=== PATIENT | female | born 1950 | race African-American/Black ===

== ENCOUNTER 2019-12-30 05:00 | Inpatient (IN) | payer MEDICARE, MEDICAID ==
[~2019-12-30] VITALS: Ht 170.2 cm; Wt 93.0 kg
[2019-12-30 05:00] VITALS: BP 151/94
[2019-12-30 06:07] LABS: APPEARANCE,URINE CLEAR; BILIRUBIN, URINE NEGATIVE (NEGATIVE); GLUCOSE, URINE (UA) NEGATIVE (NEGATIVE); KETONES,URINE 1+ (NEGATIVE); LEUKOCYTE ESTERASE ,URINE 1+ (NEGATIVE); NITRITE,URINE NEGATIVE (NEGATIVE); PH,URINE 9 (4.5-8.0); PROTEIN,URINE 3+ (NEGATIVE); UROBILINOGEN,URINE 8 MG/DL (0.0-1.0)
[2019-12-30 06:16] LABS: ANION GAP 8 mmol/L (5-15); BASOPHILS % (AUTO) 0.3 % (0.0-2.0); BLOOD UREA NITROGEN 11 mg/dL (7-18); CALCIUM 9.2 MG/DL (8.5-10.1); CARBON DIOXIDE 31 MMOL/L (21-32); CHLORIDE 104 MMOL/L (98-107); CREATININE 0.6 MG/DL (0.55-1.30); HEMATOCRIT 50.9 % (37.0-47.0); HEMOGLOBIN 15.3 G/DL (12.0-16.0); LYMPHOCYTES % (AUTO) 9.2 % (20.0-45.0); MEAN CORPUSCULAR VOLUME 86 FL (80-99); MONOCYTES % (AUTO) 6.3 % (1.0-10.0); NEUTROPHILS % (AUTO) 84.2 % (45.0-75.0); PLATELET COUNT 158 K/UL (150-450); POTASSIUM 4.1 MMOL/L (3.5-5.1); SODIUM 143 MMOL/L (136-145)
[2019-12-30 06:18] LABS: COLOR,URINE YELLOW
--- NOTE | 2019-12-30 06:25 | Emergency Room Report ---
History of Present Illness General Chief Complaint: Dyspnea/Respdistress Source: Medical Record, EMS (Leif Morrison MD) Present Illness HPI 69-year-old female presents the ED for low O2 sats. Brought in by EMS from residential facility. O2 sat 80s on 2 L nasal cannula. Patient nonverbal at baseline. Patient has fever. Patient has tested positive for COVID room. Patient unable to provide any additional history at this time. No signs of distress. No other aggravating relieving factors. No other associated symptoms (Leif Morrison MD) Allergies: Coded Allergies: IODINE (Verified Allergy, Unknown, 12/30/19) MORPHINE (Verified Allergy, Unknown, 12/30/19) PENICILLINS (Verified Allergy, Unknown, 12/30/19) SHELLFISH DERIVED (Verified Allergy, Unknown, 12/30/19) COVID-19 Screening Contact w/high risk pt: Yes Recent Travel to affected area: No Experienced COVID-19 symptoms?: Yes COVID-19 symptoms experienced: Shortness of Breath COVID-19 Testing performed CAT DRIVER: Yes COVID-19 Screening: Positive COVID-19 COVID-19 Testing Source: @ FACILITY ON 12/14 (Leif Morrison MD) Patient History Past Medical History: unable to obtain Past Surgical History: none Pertinent Family History: none Social History: Denies: smoking, alcohol use, drug use Now: No Immunizations: UTD Reviewed Nursing Documentation: PMH: Agreed; PSxH: Agreed (Leif Morrison MD) Review of Systems All Other Systems: limited (Leif Morrison MD) Physical Exam Vital Signs Date Time Temp Pulse Resp B/P (MAP) Pulse Ox O2 Delivery O2 Flow Rate FiO2 12/30/19 05:00 100.4 100 20 134/86 (102) 96 Nasal Cannula 2.0 Sp02 EP Interpretation: reviewed, normal General Appearance: no apparent distress, GCS 15, non-toxic, lethargic Head: normocephalic, atraumatic Eyes: bilateral eye normal inspection, bilateral eye PERRL ENT: hearing grossly normal, normal pharynx, no angioedema, normal voice Neck: full range of motion, supple/symm/no masses Respiratory: chest non-tender, lungs clear, normal breath sounds, speaking full sentences Cardiovascular #1: regular rate, rhythm, no edema Cardiovascular #2: 2+ carotid (R), 2+ carotid (L), 2+ radial (R), 2+ radial (L) , 2+ dorsalis pedis (R), 2+ dorsalis pedis (L) Gastrointestinal: normal bowel sounds, non tender, soft, non-distended, no guarding, no rebound Rectal: deferred Genitourinary: normal inspection, no CVA tenderness Musculoskeletal: back normal, normal range of motion, gait/station normal, non- tender Neurologic: other - Nonverbal Psychiatric: other - Nonverbal Reflexes: 3+ bicep (R), 3+ bicep (L), 3+ tricep (R), 3+ tricep (L), 3+ knee (R) , 3+ knee (L) Skin: other - See nursing skin notes Lymphatic: no adenopathy (Leif Morrison MD) Medical Decision Making Diagnostic Impression: Primary Impression: Respiratory distress Additional Impression: Pneumonia due to COVID-19 virus ER Course Assumed care of this patient from previous provider pending labs, x-ray and admission. Briefly this is a 69-year-old female presenting from residential facility for evaluation of shortness of breath. Patient recently tested positive COVID-19. Chest x-ray concerning for bilateral infiltrates but she is improved on room air. Slight hypoxia on ABG on initial presentation but patient currently stable. Slight lactic acidosis receiving antibiotics and IV fluids. Will admit to her PMD Dr. Whitney The patient is DNR/DNI. Laboratory Tests Test 12/30/19 05:29 12/30/19 05:30 Arterial Blood pH 7.500 (7.350-7.450) Arterial Blood Partial Pressure CO2 34.1 mmHg (35.0-45.0) L Arterial Blood Partial Pressure O2 51.4 mmHg (75.0-100.0) L Arterial Blood HCO3 26.0 mmol/L (22.0-26.0) Arterial Blood Oxygen Saturation 88.6 % (95-100) *L Arterial Blood Base Excess 3.3 (-2-2) H Harish Test Positive White Blood Count 10.0 K/UL (4.8-10.8) Red Blood Count 5.90 M/UL (4.20-5.40) H Hemoglobin 15.3 G/DL (12.0-16.0) Hematocrit 50.9 % (37.0-47.0) H Mean Corpuscular Volume 86 FL (80-99) Mean Corpuscular Hemoglobin 25.9 PG (27.0-31.0) L Mean Corpuscular Hemoglobin Concent 30.0 G/DL (32.0-36.0) L Red Cell Distribution Width 15.0 % (11.6-14.8) H Platelet Count 158 K/UL (150-450) Mean Platelet Volume 10.8 FL (6.5-10.1) H Neutrophils (%) (Auto) 84.2 % (45.0-75.0) H Lymphocytes (%) (Auto) 9.2 % (20.0-45.0) L Monocytes (%) (Auto) 6.3 % (1.0-10.0) Eosinophils (%) (Auto) 0.0 % (0.0-3.0) Basophils (%) (Auto) 0.3 % (0.0-2.0) Urine Color Yellow Urine Appearance Clear Urine pH 9 (4.5-8.0) Urine Specific [place] 1.015 (1.005-1.035) Urine Protein 3+ (NEGATIVE) H Urine Glucose (UA) Negative (NEGATIVE) Urine Ketones 1+ (NEGATIVE) H Urine Blood Negative (NEGATIVE) Urine Nitrite Negative (NEGATIVE) Urine Bilirubin Negative (NEGATIVE) Urine Urobilinogen 8 MG/DL (0.0-1.0) H Urine Leukocyte Esterase 1+ (NEGATIVE) H Urine RBC 0-2 /HPF (0 - 2) Urine WBC 2-4 /HPF (0 - 2) Urine Squamous Epithelial Cells Few /LPF (NONE/OCC) Urine Bacteria Few /HPF (NONE) Sodium Level 143 MMOL/L (136-145) Potassium Level 4.1 MMOL/L (3.5-5.1) Chloride Level 104 MMOL/L (98-107) Carbon Dioxide Level 31 MMOL/L (21-32) Anion Gap 8 mmol/L (5-15) Blood Urea Nitrogen 11 mg/dL (7-18) Creatinine 0.6 MG/DL (0.55-1.30) Estimated Glomerular Filtration Rate > 60 mL/min (>60) Glucose Level 173 MG/DL (74-106) H Lactic Acid Level 2.60 mmol/L (0.4-2.0) H Calcium Level 9.2 MG/DL (8.5-10.1) Total Bilirubin 0.9 MG/DL (0.2-1.0) Aspartate Amino Transferase (AST) 41 U/L (15-37) H Alanine Aminotransferase (ALT) 65 U/L (12-78) Alkaline Phosphatase 90 U/L (46-116) Troponin I 0.000 ng/mL (0.000-0.056) Pro-B-Type Natriuretic Peptide 529 pg/mL (0-125) H Total Protein 7.2 G/DL (6.4-8.2) Albumin 2.7 G/DL (3.4-5.0) L Globulin 4.5 g/dL Albumin/Globulin Ratio 0.6 (1.0-2.7) L (Tommie Leon MD) EKG Diagnostic Results Rate: tachycardiac Rhythm: NSR ST Segments: no acute changes ASA given to the pt in ED: No (Leif Morrison MD) Rhythm Strip Diag. Results EP Interpretation: yes Rhythm: NSR, no PVC's, no ectopy (Leif Morrison MD) Chest X-Ray Diagnostic Results Chest X-Ray Diagnostic Results : Chest X-Ray Ordered: Yes # of Views/Limited/Complete: 1 View Indication: Shortness of Breath EP Interpretation: Yes Interpretation: other Impression: Other - Bilateral patchy infiltrates consistent with viral pneumonia Electronically Signed by: Electronically signed by Dr. Tommie Leon (Tommie Leon MD) Last Vital Signs Date Time Temp Pulse Resp B/P (MAP) Pulse Ox O2 Delivery O2 Flow Rate FiO2 12/30/19 05:00 100.7 104 25 151/94 92 Nasal Cannula 4.0 Status: improved (Leif Morrison MD) Disposition: ADMITTED INPATIENT Condition: Serious Referrals: NON PHYSICIAN (PCP) Leif Morrison MD Dec 30, 2019 06:25 Tommie Leon MD Dec 30, 2019 07:44
[2019-12-30 06:27] LABS: ALANINE AMINOTRANSFERASE 65 U/L (12-78); ALBUMIN 2.7 G/DL (3.4-5.0); ALBUMIN/GLOBULIN RATIO 0.6 (1.0-2.7); ALKALINE PHOSPHATASE 90 U/L (46-116); ASPARTATE AMINO TRANSFERASE 41 U/L (15-37); BILIRUBIN,TOTAL 0.9 MG/DL (0.2-1.0)
[2019-12-30] MEDS ORDERED: FAMOTIDINE20 MG GT (06:29)
[2019-12-30] MEDS ORDERED: NAMENDA10 MG GT (06:29)
[2019-12-30] MEDS ORDERED: ZINC SULFATE220 M1 GT (06:29)
[2019-12-30] MEDS ORDERED: ASCORBIC ACID500 MG GT (06:29)
[2019-12-30] MEDS ORDERED: LEVETIRACETAM500 MG GT ×2 (06:29→14:44)
[2019-12-30] MEDS ORDERED: HEPARIN SO5000 UNIT2 SUBQ (06:29)
[2019-12-30] MEDS ORDERED: CATAPRES0.1 MG GT ×2 (06:29→14:44)
[2019-12-30 07:09] VITALS: BP 127/88
[2019-12-30] MEDS ORDERED: Vancomycin 1 GM in NS 275 ML IVPB ONE (07:45)
--- NOTE | 2019-12-30 10:05 | Diagnostic Imaging Report ---
Procedure: XRAY Chest 1v Reason for study: Reason For Exam: SOB Comparison films: None. FINDINGS: A single one view chest is obtained. Vascularity is normal. There are bilateral infiltrates left greater than right. Cardiac and mediastinal silhouette are within normal limits. CP angles are sharp. The bony thorax appear unremarkable. IMPRESSION: Bilateral infiltrates.
[2019-12-30] MEDS: Levofloxacin 750mg tab GT SCH (12:08)
--- NOTE | 2019-12-30 12:30 | Consultation ---
DATE OF CONSULTATION: 12/30/2019 PULMONARY CONSULTATION CONSULTING PHYSICIAN: Terrance Diaz MD. HISTORY OF PRESENT ILLNESS: This is a 69[facility]-old [facility] resident who is confirmed to be COVID-19 positive from the [facility]. She was found to be hypoxic on nasal oxygen, saturating only in the mid 80s. She is admitted to the hospital for management and care. The patient is unable to provide any further history. REVIEW OF SYSTEMS: Unreliable. PAST MEDICAL HISTORY: Notable for seizure disorder, dementia, hypertension, GERD. HOME MEDICATIONS: Namenda, Keppra, Pepcid, and clonidine. She is also on ascorbic acid. PAST SURGICAL HISTORY: Not known. PHYSICAL EXAMINATION: GENERAL: Reveals a 69-year-old female. VITAL SIGNS: Temperature 100.4, blood pressure 150/80, heart rate is 94, O2 saturation 96% on 4 liters of oxygen, respiratory rate 22. HEENT: Unremarkable. CHEST: Showed decreased breath sounds bilaterally. HEART: Normal heart sounds. ABDOMEN: Soft. EXTREMITIES: There is no edema. LABORATORY DATA: Lab testing shows normal CBC. Glucose 173. Lactic acid 2.6, now 1.7. AST 41. Urinalysis shows few pus cells. ABG, pH 7.5, pCO2 34, pO2 51. IMPRESSION: 1. Hypoxic respiratory failure. 2. COVID-19 pneumonia. 3. Hyperglycemia. 4. Hypertension. 5. Seizure disorder. 6. Dementia. DISCUSSION: The patient's x-ray of chest confirms bilateral infiltrates suspicious for COVID-19 pneumonia. We will recommend IV Remdesivir. If the patient qualifies, defer to ID. Continue oxygen, pulmonary hygiene, and fluids. We will follow. Terrance Diaz M.D. DR: PROSPER JOB#: [id number] CC:
[2019-12-30] MEDS ORDERED: ZOFRAN4 M3 GT (14:44)
[2019-12-30] MEDS ORDERED: COLACE100 MG/10 GT (14:44)
[2019-12-30] MEDS ORDERED: ADULT WAL-TUSS118 ML GT (14:44)
[2019-12-30] MEDS ORDERED: ASCORBIC ACID500 M4 GT (14:44)
[2019-12-30] MEDS ORDERED: HUMALOG100 UNIT/4 SUBQ (14:59)
[2019-12-30] MEDS ORDERED: MILK OF MA400 MG/51 ORAL (14:59)
[2019-12-30] MEDS ORDERED: BISACODYL10 M1 RC (14:59)
[2019-12-30] MEDS ORDERED: ACETAMINOPHEN325 M1 GT (14:59)
[2019-12-30] MEDS ORDERED: FLEET ENEMA133 ML RECTAL (14:59)
--- NOTE | 2019-12-30 15:30 | Consultation ---
DATE OF CONSULTATION: 12/30/2019 CONSULTING PHYSICIAN: Dennis Chester MD. REFERRING PHYSICIAN: Dinah Whitney MD. REASON FOR CONSULTATION: Malfunctioning G-tube. HISTORY OF PRESENT ILLNESS: This 69-year-old female from the [facility] nonverbal, was brought to the hospital with shortness of breath, was found to be COVID positive. The G-tube was not working and was damaged, so GI consult requested for evaluation. PAST MEDICAL HISTORY: 1. History of dementia. 2. COPD. 3. Dysphagia requiring G-tube. 4. GERD. 5. Recent COVID positive pneumonia. MEDICATIONS: Please see medication reconciliation list. ALLERGIES: To iodine, morphine, penicillin, shellfish. REVIEW OF SYSTEMS: Unable to obtain. SOCIAL HISTORY: Currently, lives in a [facility]. No history of tobacco, alcohol, or drug abuse. PAST SURGICAL HISTORY: Unknown. PHYSICAL EXAMINATION: VITAL SIGNS: Temperature, T-max is 100.4, T current is 99, pulse 93, respirations 22, blood pressure 155/89. HEENT: Normocephalic and atraumatic. Sclerae anicteric. NECK: Supple. No evidence of obvious lymphadenopathy. CARDIOVASCULAR: Tachy. Regular rate. Plus S1-S2. LUNGS: Reveals some bilaterally diffusely. ABDOMEN: Soft, nontender. No rebound. No guarding. No peritoneal sign. EXTREMITIES: No cyanosis, no clubbing, no edema. LABORATORY DATA: White count is 10, hemoglobin 15, hematocrit 50, platelet count is 158,000. Chem-7, sodium 143, potassium 4.1, BUN 11, creatinine 0.6. ASSESSMENT AND PLAN: This is a 69-year-old female with numerous medical problems admitted to the hospital with COVID-positive pneumonia and malfunctioning G-tube. I removed the old G-tube at bedside and replaced it with a new one 20-Afghan G-tube flush properly. We are going to start tube feeding later today. I want to thank Dr. Dinah Whitney for this kind referral. Dennis Chester M.D. DR: EDISON JOB#: [id number] CC:
[2019-12-30 16:00] VITALS: BP 134/78
--- NOTE | 2019-12-30 16:00 | Consultation ---
DATE OF CONSULTATION: 12/30/2019 INFECTIOUS DISEASE CONSULTATION CONSULTING PHYSICIAN: Mamadou Ramos MD. PRIMARY ATTENDING PHYSICIAN: Dinah Whitney MD. REASON FOR CONSULTATION: Pneumonia COVID-19 disease. HISTORY OF PRESENT ILLNESS: This is a 69-year-old female admitted today from a [facility] facility because of shortness of breath. The patient had O2 saturation of 80%. The patient had a previous admission to [facility] on 21 of December with COVID-19 disease and the test was positive on that day. She is not a source of history. PAST MEDICAL HISTORY: Significant for dementia, diabetes mellitus, G-tube placement, seizure disorder, gastroesophageal reflux disease. ALLERGIES: Allergic to iodine, morphine, penicillin, shellfish. MEDICATIONS: She got a dose of IV vancomycin in the ER, Tylenol, and sodium chloride. SOCIAL HISTORY: assisted resident. Single. No other history is obtainable by the patient. PHYSICAL EXAMINATION: VITAL SIGNS: T-max is 100.7 rectal, current temperature 99, pulse 98, blood pressure is 155/89. GENERAL APPEARANCE: No acute distress, noncommunicative. HEAD AND NECK: Getting oxygen by nasal cannula. HEART: Normal rate LUNGS: Clear. ABDOMEN: Soft. G-tube in place. EXTREMITIES: Has no edema. She has bilateral sequential compression device. LABORATORY DATA: Sodium 143, potassium 4.1, chloride 104, bicarbonate 31, BUN 11, creatinine 0.6. Glucose 173. Lactic acid was 2.6 at the time of admission, now it is 1.9. Chest x-ray showed bilateral infiltrates. Cultures are pending. IMPRESSION: Pneumonia, has recent history of COVID-19 and still may have active disease. She has history of COPD, dementia, diabetes mellitus, G-tube placement, seizure disorder, hypoxemia, lactic acidosis. RECOMMENDATION: She has penicillin allergy. We will start the patient on Levaquin. We will follow up the COVID-19 test and cultures. At the end of my exam, I thank Dr. Whitney for involving me in the care of this patient. Mamadou Ramos M.D. DR: YESY JOB#: [id number] CC: PATIENCE
[2019-12-30] MEDS ORDERED: Fleet's Enema 133ml RECTAL PRN (16:45)
[2019-12-30] MEDS ORDERED: guaiFENesin /DM 10ml syrup GT SCH (16:45)
[2019-12-30] MEDS ORDERED: Docusate 100mg/10ml Liq GT PRN ×2 (16:45→17:00)
[2019-12-30] MEDS: NovoLOG Insulin Flexpen SUBQ SCH (18:57)
[2019-12-30 20:00] VITALS: BP 144/92
[2019-12-30] MEDS ORDERED: NovoLOG Insulin Flexpen SUBQ SCH (21:00)
[2019-12-30] MEDS: Heparin 5000 units/ml inj SUBQ SCH (21:16)
[2019-12-30] MEDS: Ascorbic Acid 500mg tab GT SCH (21:16)
[2019-12-30] MEDS: levETIRAcetam 500mg/5ml Liquid GT SCH (21:16)
--- NOTE | 2019-12-30 23:00 | History and Physical Report ---
DATE OF ADMISSION: 12/30/2019 HISTORY OF PRESENT ILLNESS: The patient was brought into the ER because of hypoxia from her facility. The patient is on oxygen. The patient is nonverbal. The patient apparently tested positive for COVID and comes in from facility. The patient is unable to provide history. PAST MEDICAL HISTORY: COVID positive, respiratory insufficiency, constipation, hypertension, GERD, NIDDM, seizure disorder, dysphagia, advanced dementia. PAST SURGICAL HISTORY: PEG. ALLERGIES: Iodine, morphine, penicillin, shellfish. MEDICATIONS: Clonidine, Bisacodyl, Keppra, Namenda. FAMILY HISTORY: Noncontributory. SOCIAL HISTORY: Unable to obtain. REVIEW OF SYSTEMS: Unable to obtain, nonverbal. PHYSICAL EXAMINATION: VITAL SIGNS: Temperature 99, pulse 93, blood pressure 155/89. HEENT: PERRLA. NECK: Supple. CHEST: Bibasilar rhonchi. CARDIOVASCULAR: Regular rate and rhythm. ABDOMEN: Soft. There is some moldy spots around on the G-tube. Positive bowel sounds. EXTREMITIES: No edema. NEUROLOGIC: Does not follow neurological exam, nonverbal. LABORATORY AND DIAGNOSTIC DATA: Chest x-ray shows bilateral congestion. WBC of 10, hemoglobin 15.3, platelet 158. Sodium 143, potassium 4.1, BUN of 11, creatinine 0.6. Lactic acid 2.6. ASSESSMENT/PLAN: Sepsis, COVID positive pneumonia, respiratory insufficiency, UTI, hypoxia, status post PEG. I have asked Dr. Mamadou Ramos, Dr. Diaz, Dr. Chester to see the patient for the management of the moldy spots on the feeding tube as well as for the management of COVID positive pneumonia, respiratory insufficiency. Antibiotics per Dr. Mamadou Ramos. Dinah Whitney M.D. DR: Fernando JOB#: [id number] CC:
[2019-12-31] VITALS: BP 143/86
[2019-12-31] MEDS: Acetaminophen 650 MG SUPP RECTAL PRN (00:09)
[2019-12-31 04:00] VITALS: BP 108/67
[2019-12-31] MEDS: Heparin 5000 units/ml inj SUBQ SCH ×3 (05:05→22:00)
[2019-12-31] MEDS: NovoLOG Insulin Flexpen SUBQ SCH ×4 (05:06→17:40)
[2019-12-31 06:28] LABS: BASOPHILS % (AUTO) 0.3 % (0.0-2.0); EOSINOPHILS % (AUTO) 0.4 % (0.0-3.0); HEMATOCRIT 43.2 % (37.0-47.0); HEMOGLOBIN 13.3 G/DL (12.0-16.0); LYMPHOCYTES % (AUTO) 15.1 % (20.0-45.0); MEAN CORPUSCULAR VOLUME 86 FL (80-99); MONOCYTES % (AUTO) 7.8 % (1.0-10.0); NEUTROPHILS % (AUTO) 76.4 % (45.0-75.0); PLATELET COUNT 132 K/UL (150-450); RED BLOOD COUNT 5.01 M/UL (4.20-5.40); RED CELL DISTRIBUTION WIDTH 15.4 % (11.6-14.8); WHITE BLOOD COUNT 8.7 K/UL (4.8-10.8)
[2019-12-31 07:09] LABS: ALANINE AMINOTRANSFERASE 55 U/L (12-78); ALBUMIN 2.2 G/DL (3.4-5.0); ALBUMIN/GLOBULIN RATIO 0.5 (1.0-2.7); ALKALINE PHOSPHATASE 81 U/L (46-116); ANION GAP 8 mmol/L (5-15); ASPARTATE AMINO TRANSFERASE 28 U/L (15-37); BILIRUBIN,TOTAL 0.6 MG/DL (0.2-1.0); BLOOD UREA NITROGEN 9 mg/dL (7-18); CARBON DIOXIDE 28 MMOL/L (21-32); CHLORIDE 103 MMOL/L (98-107); CREATININE 0.5 MG/DL (0.55-1.30); POTASSIUM 3.3 MMOL/L (3.5-5.1); SODIUM 139 MMOL/L (136-145)
[2019-12-31 08:00] VITALS: BP 116/72
[2019-12-31] MEDS: Milk of Magnesia 30ml Ud GT SCH (09:00)
--- NOTE | 2019-12-31 09:06 | Infectious Diseases Prog Note ---
Assessment/Plan Assessment/Plan IMPRESSION: Pneumonia, ? active COVID19 COPD, Dementia, Diabetes mellitus, G-tube placement status Seizure disorder, Hypoxemia, Lactic acidosis. Penicillin allergy RECOMMENDATION: Continue Levaquin. We will follow up the COVID-19 test and cultures. Subjective ROS Limited/Unobtainable: Yes Constitutional: Reports: fever, other - Kx=060.8 Allergies: Coded Allergies: IODINE (Verified Allergy, Unknown, 12/30/19) MORPHINE (Verified Allergy, Unknown, 12/30/19) PENICILLINS (Verified Allergy, Unknown, 12/30/19) SHELLFISH DERIVED (Verified Allergy, Unknown, 12/30/19) Objective Vital Signs Last 24 Hour Vital Signs Date Time Temp Pulse Resp B/P (MAP) Pulse Ox O2 Delivery O2 Flow Rate FiO2 12/31/19 08:00 98.9 99 20 116/72 (87) 98 12/31/19 04:00 98.1 87 19 108/67 (81) 96 12/31/19 04:00 86 12/31/19 00:39 98.8 12/31/19 00:00 101.8 110 19 143/86 (105) 96 12/31/19 00:00 100 12/30/19 21:00 Nasal Cannula 4.0 12/30/19 20:00 98.8 109 19 144/92 (109) 96 12/30/19 20:00 102 12/30/19 16:00 98.7 98 20 134/78 (96) 98 12/30/19 16:00 104 12/30/19 12:00 96 12/30/19 09:30 98 Height (Feet): 5 Height (Inches): 7.00 Weight (Pounds): 200 General Appearance: no acute distress HEENT: mucous membranes moist Respiratory/Chest: other - oxygen by nasal cannula Cardiovascular: normal rate Abdomen: soft, non tender, other - GT feeding Extremities: no edema Neurologic/Psychiatric: aphasia Laboratory Tests Test 12/31/19 05:30 White Blood Count 8.7 K/UL (4.8-10.8) Red Blood Count 5.01 M/UL (4.20-5.40) Hemoglobin 13.3 G/DL (12.0-16.0) Hematocrit 43.2 % (37.0-47.0) Mean Corpuscular Volume 86 FL (80-99) Mean Corpuscular Hemoglobin 26.5 PG (27.0-31.0) L Mean Corpuscular Hemoglobin Concent 30.7 G/DL (32.0-36.0) L Red Cell Distribution Width 15.4 % (11.6-14.8) H Platelet Count 132 K/UL (150-450) L Mean Platelet Volume 10.0 FL (6.5-10.1) Neutrophils (%) (Auto) 76.4 % (45.0-75.0) H Lymphocytes (%) (Auto) 15.1 % (20.0-45.0) L Monocytes (%) (Auto) 7.8 % (1.0-10.0) Eosinophils (%) (Auto) 0.4 % (0.0-3.0) Basophils (%) (Auto) 0.3 % (0.0-2.0) Sodium Level 139 MMOL/L (136-145) Potassium Level 3.3 MMOL/L (3.5-5.1) L Chloride Level 103 MMOL/L (98-107) Carbon Dioxide Level 28 MMOL/L (21-32) Anion Gap 8 mmol/L (5-15) Blood Urea Nitrogen 9 mg/dL (7-18) Creatinine 0.5 MG/DL (0.55-1.30) L Estimat Glomerular Filtration Rate > 60 mL/min (>60) Glucose Level 151 MG/DL (74-106) H Calcium Level 9.0 MG/DL (8.5-10.1) Total Bilirubin 0.6 MG/DL (0.2-1.0) Aspartate Amino Transf (AST/SGOT) 28 U/L (15-37) Alanine Aminotransferase (ALT/SGPT) 55 U/L (12-78) Alkaline Phosphatase 81 U/L (46-116) Total Protein 6.6 G/DL (6.4-8.2) Albumin 2.2 G/DL (3.4-5.0) L Globulin 4.4 g/dL Albumin/Globulin Ratio 0.5 (1.0-2.7) L Current Medications Medications (Trade) Dose Ordered Sig/Bola Route PRN Reason Start Time Stop Time Status Last Admin Dose Admin Acetaminophen (Tylenol) 650 mg Q6H PRN RECTAL Mild Pain (Pain Scale 1-3) 12/30/19 10:15 01/29/20 10:14 12/31/19 00:09 Ascorbic Acid (Vitamin C) 1,000 mg Q12HR GT 12/30/19 21:00 01/29/20 20:59 12/30/19 21:16 Bisacodyl (Dulcolax) 10 mg DAILYPRN PRN RECTAL CONSTIPATION 12/30/19 17:00 03/29/20 16:44 Clonidine HCl (Catapres Tab) 0.1 mg Q6H PRN GT sbp>160 12/30/19 16:45 03/29/20 16:44 Dextrose (Dextrose 50%) 25 ml Q30M PRN IV Hypoglycemia 12/30/19 16:45 03/29/20 16:44 Dextrose (Dextrose 50%) 50 ml Q30M PRN IV Hypoglycemia 12/30/19 16:45 03/29/20 16:44 Docusate Sodium (Colace) 100 mg BIDPRN PRN GT Constipation 12/30/19 17:00 01/29/20 16:44 Famotidine (Pepcid) 20 mg DAILY GT 12/31/19 09:00 03/30/20 08:59 Guaifenesin/ Dextromethorphan (Robitussin DM Syrup) 5 ml Q4H PRN GT For Cough 12/30/19 16:54 03/29/20 16:53 Heparin Sodium (Porcine) (Heparin 5000 units/ml) 5,000 units EVERY 8 HOURS SUBQ 12/30/19 22:00 02/13/20 21:59 12/31/19 05:05 Insulin Aspart (NovoLOG) Q6HR SUBQ 12/30/19 18:00 03/29/20 17:59 12/31/19 05:06 Levetiracetam (Keppra) 500 mg Q12HR GT 12/30/19 21:00 02/13/20 20:59 12/30/19 21:16 Levofloxacin (Levaquin) 750 mg DAILY GT 12/30/19 11:15 01/06/20 11:14 12/30/19 12:08 Magnesium Hydroxide (Mom) 30 ml DAILY GT 12/31/19 09:00 01/30/20 08:59 Memantine (Namenda) 10 mg DAILY GT 12/31/19 09:00 01/30/20 08:59 Ondansetron HCl (Zofran) 4 mg Q4H PRN GT Nausea & Vomiting 12/30/19 16:45 01/29/20 16:44 Sodium Chloride 1,000 ml @ 50 mls/hr Q20H IV 12/30/19 10:15 01/29/20 10:14 12/31/19 05:06 Sodium Phosphate (Fleet's Sodium Phosl Enema) 133 ml DAILYPRN PRN RECTAL constipation 12/30/19 16:45 01/29/20 16:44 Zinc Sulfate (Zinc Sulfate) 220 mg DAILY GT 12/31/19 09:00 03/30/20 08:59 Mamadou Ramos MD Dec 31, 2019 09:06
[2019-12-31] MEDS: levETIRAcetam 500mg/5ml Liquid GT SCH ×2 (09:19→22:04)
[2019-12-31] MEDS: Memantine 10mg tab GT SCH (09:19)
[2019-12-31] MEDS: Ascorbic Acid 500mg tab GT SCH ×2 (09:19→22:04)
[2019-12-31] MEDS: Zinc Sulfate 220mg GT SCH (09:20)
[2019-12-31] MEDS: Levofloxacin 750mg tab GT SCH (09:26)
--- NOTE | 2019-12-31 10:26 | General Progress Note ---
Assessment/Plan Assessment/Plan: 1. History of dementia. 2. COPD. 3. Dysphagia requiring G-tube. 4. GERD. 5. Recent COVID positive pneumonia. GT has been changed GTF GT care will fu Subjective ROS Limited/Unobtainable: No Allergies: Coded Allergies: IODINE (Verified Allergy, Unknown, 12/30/19) MORPHINE (Verified Allergy, Unknown, 12/30/19) PENICILLINS (Verified Allergy, Unknown, 12/30/19) SHELLFISH DERIVED (Verified Allergy, Unknown, 12/30/19) Objective Last 24 Hour Vital Signs Date Time Temp Pulse Resp B/P (MAP) Pulse Ox O2 Delivery O2 Flow Rate FiO2 12/31/19 08:00 99 12/31/19 08:00 98.9 99 20 116/72 (87) 98 12/31/19 04:00 98.1 87 19 108/67 (81) 96 12/31/19 04:00 86 12/31/19 00:39 98.8 12/31/19 00:00 101.8 110 19 143/86 (105) 96 12/31/19 00:00 100 12/30/19 21:00 Nasal Cannula 4.0 12/30/19 20:00 98.8 109 19 144/92 (109) 96 12/30/19 20:00 102 12/30/19 16:00 98.7 98 20 134/78 (96) 98 12/30/19 16:00 104 12/30/19 12:00 96 Intake and Output 12/30/19 12/31/19 19:00 07:00 Intake Total 910 ml 1370 ml Output Total 600 ml 500 ml Balance 310 ml 870 ml Free Water 200 ml 150 ml IV Total 350 ml 500 ml Tube Feeding 360 ml 720 ml Output Urine Total 600 ml 500 ml # Bowel Movements 1 Laboratory Tests 12/31/19 05:30: White Blood Count 8.7, Red Blood Count 5.01, Hemoglobin 13.3, Hematocrit 43.2, Mean Corpuscular Volume 86, Mean Corpuscular Hemoglobin 26.5L, Mean Corpuscular Hemoglobin Concent 30.7L, Red Cell Distribution Width 15.4H, Platelet Count 132L , Mean Platelet Volume 10.0, Neutrophils (%) (Auto) 76.4H, Lymphocytes (%) (Auto ) 15.1L, Monocytes (%) (Auto) 7.8, Eosinophils (%) (Auto) 0.4, Basophils (%) ( Auto) 0.3, Sodium Level 139, Potassium Level 3.3L, Chloride Level 103, Carbon Dioxide Level 28, Anion Gap 8, Blood Urea Nitrogen 9, Creatinine 0.5L, Estimat Glomerular Filtration Rate > 60, Glucose Level 151H, Calcium Level 9.0, Total Bilirubin 0.6, Aspartate Amino Transf (AST/SGOT) 28, Alanine Aminotransferase ( ALT/SGPT) 55, Alkaline Phosphatase 81, Total Protein 6.6, Albumin 2.2L, Globulin 4.4, Albumin/Globulin Ratio 0.5L Height (Feet): 5 Height (Inches): 7.00 Weight (Pounds): 200 General Appearance: lethargic EENT: normal ENT inspection Neck: supple Cardiovascular: normal rate Respiratory/Chest: decreased breath sounds Abdomen: normal bowel sounds, non tender, soft Extremities: non-tender Dennis Chester MD Dec 31, 2019 10:26
--- NOTE | 2019-12-31 10:28 | Pulmonology Progress Note ---
Subjective ROS Limited/Unobtainable: No Interval Events: None new Constitutional: Reports: no symptoms, other - Yr=058.8 HEENT: Repors: no symptoms Respiratory: Reports: no symptoms Cardiovascular: Reports: no symptoms Gastrointestinal/Abdominal: Reports: no symptoms Allergies: Coded Allergies: IODINE (Verified Allergy, Unknown, 12/30/19) MORPHINE (Verified Allergy, Unknown, 12/30/19) PENICILLINS (Verified Allergy, Unknown, 12/30/19) SHELLFISH DERIVED (Verified Allergy, Unknown, 12/30/19) Objective Last 24 Hour Vital Signs Date Time Temp Pulse Resp B/P (MAP) Pulse Ox O2 Delivery O2 Flow Rate FiO2 12/31/19 08:00 99 12/31/19 08:00 98.9 99 20 116/72 (87) 98 12/31/19 04:00 98.1 87 19 108/67 (81) 96 12/31/19 04:00 86 12/31/19 00:39 98.8 12/31/19 00:00 101.8 110 19 143/86 (105) 96 12/31/19 00:00 100 12/30/19 21:00 Nasal Cannula 4.0 12/30/19 20:00 98.8 109 19 144/92 (109) 96 12/30/19 20:00 102 12/30/19 16:00 98.7 98 20 134/78 (96) 98 12/30/19 16:00 104 12/30/19 12:00 96 Intake and Output 12/30/19 12/31/19 19:00 07:00 Intake Total 910 ml 1370 ml Output Total 600 ml 500 ml Balance 310 ml 870 ml Free Water 200 ml 150 ml IV Total 350 ml 500 ml Tube Feeding 360 ml 720 ml Output Urine Total 600 ml 500 ml # Bowel Movements 1 General Appearance: no acute distress HEENT: normocephalic Respiratory: chest wall non-tender, decreased breath sounds Cardiovascular: normal peripheral pulses, normal rate Abdomen: normal bowel sounds Laboratory Tests 12/31/19 05:30: White Blood Count 8.7, Red Blood Count 5.01, Hemoglobin 13.3, Hematocrit 43.2, Mean Corpuscular Volume 86, Mean Corpuscular Hemoglobin 26.5L, Mean Corpuscular Hemoglobin Concent 30.7L, Red Cell Distribution Width 15.4H, Platelet Count 132L , Mean Platelet Volume 10.0, Neutrophils (%) (Auto) 76.4H, Lymphocytes (%) (Auto ) 15.1L, Monocytes (%) (Auto) 7.8, Eosinophils (%) (Auto) 0.4, Basophils (%) ( Auto) 0.3, Sodium Level 139, Potassium Level 3.3L, Chloride Level 103, Carbon Dioxide Level 28, Anion Gap 8, Blood Urea Nitrogen 9, Creatinine 0.5L, Estimat Glomerular Filtration Rate > 60, Glucose Level 151H, Calcium Level 9.0, Total Bilirubin 0.6, Aspartate Amino Transf (AST/SGOT) 28, Alanine Aminotransferase ( ALT/SGPT) 55, Alkaline Phosphatase 81, Total Protein 6.6, Albumin 2.2L, Globulin 4.4, Albumin/Globulin Ratio 0.5L Current Medications Medications (Trade) Dose Ordered Sig/Bola Route PRN Reason Start Time Stop Time Status Last Admin Dose Admin Acetaminophen (Tylenol) 650 mg Q6H PRN RECTAL Mild Pain (Pain Scale 1-3) 12/30/19 10:15 01/29/20 10:14 12/31/19 00:09 Ascorbic Acid (Vitamin C) 1,000 mg Q12HR GT 12/30/19 21:00 01/29/20 20:59 12/31/19 09:19 Bisacodyl (Dulcolax) 10 mg DAILYPRN PRN RECTAL CONSTIPATION 12/30/19 17:00 03/29/20 16:44 Clonidine HCl (Catapres Tab) 0.1 mg Q6H PRN GT sbp>160 12/30/19 16:45 03/29/20 16:44 Clotrimazole (Lotrimin) 1 applic THREE TIMES A DAY TOPIC 12/31/19 10:00 03/30/20 09:59 Dextrose (Dextrose 50%) 25 ml Q30M PRN IV Hypoglycemia 12/30/19 16:45 03/29/20 16:44 Dextrose (Dextrose 50%) 50 ml Q30M PRN IV Hypoglycemia 12/30/19 16:45 03/29/20 16:44 Docusate Sodium (Colace) 100 mg BIDPRN PRN GT Constipation 12/30/19 17:00 01/29/20 16:44 Famotidine (Pepcid) 20 mg DAILY GT 12/31/19 09:00 03/30/20 08:59 12/31/19 09:19 Guaifenesin/ Dextromethorphan (Robitussin DM Syrup) 5 ml Q4H PRN GT For Cough 12/30/19 16:54 03/29/20 16:53 Heparin Sodium (Porcine) (Heparin 5000 units/ml) 5,000 units EVERY 8 HOURS SUBQ 12/30/19 22:00 02/13/20 21:59 12/31/19 05:05 Insulin Aspart (NovoLOG) Q6HR SUBQ 12/30/19 18:00 03/29/20 17:59 12/31/19 05:06 Levetiracetam (Keppra) 500 mg Q12HR GT 12/30/19 21:00 02/13/20 20:59 12/31/19 09:19 Levofloxacin (Levaquin) 750 mg DAILY GT 12/30/19 11:15 01/06/20 11:14 12/31/19 09:26 Magnesium Hydroxide (Mom) 30 ml DAILY GT 12/31/19 09:00 01/30/20 08:59 Memantine (Namenda) 10 mg DAILY GT 12/31/19 09:00 01/30/20 08:59 12/31/19 09:19 Ondansetron HCl (Zofran) 4 mg Q4H PRN GT Nausea & Vomiting 12/30/19 16:45 01/29/20 16:44 Sodium Phosphate (Fleet's Sodium Phosl Enema) 133 ml DAILYPRN PRN RECTAL constipation 12/30/19 16:45 01/29/20 16:44 Zinc Sulfate (Zinc Sulfate) 220 mg DAILY GT 12/31/19 09:00 03/30/20 08:59 12/31/19 09:20 Assessment/Plan Assessment/Plan IMPRESSION: 1. Hypoxic respiratory failure. 2. COVID-19 pneumonia. 3. Hyperglycemia. 4. Hypertension. 5. Seizure disorder. 6. Dementia. DISCUSSION: The patient's x-ray of chest confirms bilateral infiltrates suspicious for COVID-19 pneumonia. Abx per ID Continue oxygen, pulmonary hygiene, and fluids. I will follow. Ramon Wiggins Omar Syed MD Dec 31, 2019 10:28
[2019-12-31 12:00] VITALS: BP 154/70
[2019-12-31 16:00] VITALS: BP 158/89
[2019-12-31] MEDS: Vancomycin 1 GM in NS 275 ML IVPB SCH (17:21)
[2019-12-31 20:00] VITALS: BP_SYST 144; BP_SYST 151; BP_DIAS 60; BP_DIAS 87
--- NOTE | 2019-12-31 21:07 | General Progress Note ---
Assessment/Plan Problem List: (1) Respiratory distress ICD Codes: R06.03 - Acute respiratory distress SNOMED: 663046863 (2) Pneumonia due to COVID-19 virus ICD Codes: U07.1 - COVID-19; J12.89 - Other viral pneumonia SNOMED: 170483373, 671713560 Status: progressing Assessment/Plan: afebrile nac low k s/p replacemtn prn oxygen positive covid pna reviewed chart and labs Subjective ROS Limited/Unobtainable: Yes Allergies: Coded Allergies: IODINE (Verified Allergy, Unknown, 12/30/19) MORPHINE (Verified Allergy, Unknown, 12/30/19) PENICILLINS (Verified Allergy, Unknown, 12/30/19) SHELLFISH DERIVED (Verified Allergy, Unknown, 12/30/19) Objective Last 24 Hour Vital Signs Date Time Temp Pulse Resp B/P (MAP) Pulse Ox O2 Delivery O2 Flow Rate FiO2 12/31/19 16:00 97.9 94 21 158/89 (112) 99 12/31/19 16:00 99 12/31/19 12:00 100 12/31/19 12:00 97.7 101 22 154/70 (98) 100 12/31/19 09:00 Nasal Cannula 4.0 12/31/19 08:00 99 12/31/19 08:00 98.9 99 20 116/72 (87) 98 12/31/19 04:00 98.1 87 19 108/67 (81) 96 12/31/19 04:00 86 12/31/19 00:39 98.8 12/31/19 00:00 101.8 110 19 143/86 (105) 96 12/31/19 00:00 100 Intake and Output 12/30/19 12/31/19 19:00 07:00 Intake Total 910 ml 1370 ml Output Total 600 ml 500 ml Balance 310 ml 870 ml Free Water 200 ml 150 ml IV Total 350 ml 500 ml Tube Feeding 360 ml 720 ml Output Urine Total 600 ml 500 ml # Bowel Movements 1 Laboratory Tests 12/31/19 05:30: White Blood Count 8.7, Red Blood Count 5.01, Hemoglobin 13.3, Hematocrit 43.2, Mean Corpuscular Volume 86, Mean Corpuscular Hemoglobin 26.5L, Mean Corpuscular Hemoglobin Concent 30.7L, Red Cell Distribution Width 15.4H, Platelet Count 132L , Mean Platelet Volume 10.0, Neutrophils (%) (Auto) 76.4H, Lymphocytes (%) (Auto ) 15.1L, Monocytes (%) (Auto) 7.8, Eosinophils (%) (Auto) 0.4, Basophils (%) ( Auto) 0.3, Sodium Level 139, Potassium Level 3.3L, Chloride Level 103, Carbon Dioxide Level 28, Anion Gap 8, Blood Urea Nitrogen 9, Creatinine 0.5L, Estimat Glomerular Filtration Rate > 60, Glucose Level 151H, Calcium Level 9.0, Total Bilirubin 0.6, Aspartate Amino Transf (AST/SGOT) 28, Alanine Aminotransferase ( ALT/SGPT) 55, Alkaline Phosphatase 81, Total Protein 6.6, Albumin 2.2L, Globulin 4.4, Albumin/Globulin Ratio 0.5L Height (Feet): 5 Height (Inches): 7.00 Weight (Pounds): 200 Dinah Whitney MD Dec 31, 2019 21:07
[2020-01-01] VITALS (7 sets, daily range): BP systolic 127–158; BP diastolic 53–86
[2020-01-01] MEDS: NovoLOG Insulin Flexpen SUBQ SCH ×4 (00:24→17:53)
[2020-01-01] MEDS: Acetaminophen 650 MG SUPP RECTAL PRN (05:15)
[2020-01-01] MEDS: Vancomycin 1 GM in NS 275 ML IVPB SCH ×2 (05:16→17:12)
[2020-01-01] MEDS: Heparin 5000 units/ml inj SUBQ SCH ×3 (06:00→21:26)
[2020-01-01 06:34] LABS: BASOPHILS % (AUTO) 0.5 % (0.0-2.0); EOSINOPHILS % (AUTO) 0.8 % (0.0-3.0); HEMATOCRIT 42.8 % (37.0-47.0); LYMPHOCYTES % (AUTO) 11.4 % (20.0-45.0); MEAN CORPUSCULAR VOLUME 86 FL (80-99); MONOCYTES % (AUTO) 9.1 % (1.0-10.0); NEUTROPHILS % (AUTO) 78.2 % (45.0-75.0); PLATELET COUNT 176 K/UL (150-450); RED BLOOD COUNT 4.98 M/UL (4.20-5.40); RED CELL DISTRIBUTION WIDTH 15.2 % (11.6-14.8); WHITE BLOOD COUNT 9.1 K/UL (4.8-10.8)
[2020-01-01 06:53] LABS: ANION GAP 7 mmol/L (5-15); BLOOD UREA NITROGEN 8 mg/dL (7-18); CALCIUM 8.9 MG/DL (8.5-10.1); CARBON DIOXIDE 28 MMOL/L (21-32); CHLORIDE 102 MMOL/L (98-107); CREATININE 0.5 MG/DL (0.55-1.30); SODIUM 137 MMOL/L (136-145)
--- NOTE | 2020-01-01 07:13 | Pulmonology Progress Note ---
Subjective ROS Limited/Unobtainable: Yes Interval Events: None new Constitutional: Reports: no symptoms, other - Ym=659.8 HEENT: Repors: no symptoms Respiratory: Reports: no symptoms Cardiovascular: Reports: no symptoms Gastrointestinal/Abdominal: Reports: no symptoms Allergies: Coded Allergies: IODINE (Verified Allergy, Unknown, 12/30/19) MORPHINE (Verified Allergy, Unknown, 12/30/19) PENICILLINS (Verified Allergy, Unknown, 12/30/19) SHELLFISH DERIVED (Verified Allergy, Unknown, 12/30/19) Objective Last 24 Hour Vital Signs Date Time Temp Pulse Resp B/P (MAP) Pulse Ox O2 Delivery O2 Flow Rate FiO2 01/01/20 04:00 109 01/01/20 04:00 100.9 115 28 133/77 (95) 94 01/01/20 00:00 99.1 109 28 140/53 (82) 94 01/01/20 00:00 103 12/31/19 23:52 104 12/31/19 23:30 Nasal Cannula 2.0 12/31/19 20:00 98.1 78 20 144/60 (88) 91 12/31/19 16:00 97.9 94 21 158/89 (112) 99 12/31/19 16:00 99 12/31/19 12:00 100 12/31/19 12:00 97.7 101 22 154/70 (98) 100 12/31/19 09:00 Nasal Cannula 4.0 12/31/19 08:00 99 12/31/19 08:00 98.9 99 20 116/72 (87) 98 Intake and Output 12/31/19 01/01/20 19:00 07:00 Intake Total 60 ml Output Total 500 ml 500 ml Balance -500 ml -440 ml Tube Feeding 60 ml Output Urine Total 500 ml 500 ml # Bowel Movements 1 1 General Appearance: no acute distress HEENT: normocephalic Respiratory: chest wall non-tender, decreased breath sounds Cardiovascular: normal peripheral pulses, normal rate Abdomen: normal bowel sounds Microbiology Date/Time Source Procedure Growth Status 12/30/19 05:50 Blood Blood Culture - Preliminary Strep Species, Alpha Hemolytic Resulted 12/30/19 05:30 Blood Blood Culture - Preliminary Strep Species, Alpha Hemolytic Resulted 12/30/19 05:30 Nasopharynx Coronavirus COVID-19 PCR ([facility]) - Final Complete Laboratory Tests 01/01/20 06:20: White Blood Count 9.1, Red Blood Count 4.98, Hemoglobin 13.0, Hematocrit 42.8, Mean Corpuscular Volume 86, Mean Corpuscular Hemoglobin 26.2L, Mean Corpuscular Hemoglobin Concent 30.5L, Red Cell Distribution Width 15.2H, Platelet Count 176 , Mean Platelet Volume 8.9, Neutrophils (%) (Auto) 78.2H, Lymphocytes (%) (Auto ) 11.4L, Monocytes (%) (Auto) 9.1, Eosinophils (%) (Auto) 0.8, Basophils (%) ( Auto) 0.5, Sodium Level 137, Potassium Level 4.0, Chloride Level 102, Carbon Dioxide Level 28, Anion Gap 7, Blood Urea Nitrogen 8, Creatinine 0.5L, Estimat Glomerular Filtration Rate > 60, Glucose Level 156H, Calcium Level 8.9 Current Medications Medications (Trade) Dose Ordered Sig/Bola Route PRN Reason Start Time Stop Time Status Last Admin Dose Admin Acetaminophen (Tylenol) 650 mg Q6H PRN RECTAL Mild Pain (Pain Scale 1-3) 12/30/19 10:15 01/29/20 10:14 01/01/20 05:15 Ascorbic Acid (Vitamin C) 1,000 mg Q12HR GT 12/30/19 21:00 01/29/20 20:59 12/31/19 22:04 Bisacodyl (Dulcolax) 10 mg DAILYPRN PRN RECTAL CONSTIPATION 12/30/19 17:00 03/29/20 16:44 Clonidine HCl (Catapres Tab) 0.1 mg Q6H PRN GT sbp>160 12/30/19 16:45 03/29/20 16:44 Clotrimazole (Lotrimin) 1 applic THREE TIMES A DAY TOPIC 12/31/19 10:00 03/30/20 09:59 12/31/19 17:48 Dextrose (Dextrose 50%) 25 ml Q30M PRN IV Hypoglycemia 12/30/19 16:45 03/29/20 16:44 Dextrose (Dextrose 50%) 50 ml Q30M PRN IV Hypoglycemia 12/30/19 16:45 03/29/20 16:44 Docusate Sodium (Colace) 100 mg BIDPRN PRN GT Constipation 12/30/19 17:00 01/29/20 16:44 Famotidine (Pepcid) 20 mg DAILY GT 12/31/19 09:00 03/30/20 08:59 12/31/19 09:19 Guaifenesin/ Dextromethorphan (Robitussin DM Syrup) 5 ml Q4H PRN GT For Cough 12/30/19 16:54 03/29/20 16:53 Heparin Sodium (Porcine) (Heparin 5000 units/ml) 5,000 units EVERY 8 HOURS SUBQ 12/30/19 22:00 02/13/20 21:59 12/31/19 15:05 Insulin Aspart (NovoLOG) Q6HR SUBQ 12/30/19 18:00 03/29/20 17:59 01/01/20 06:43 Levetiracetam (Keppra) 500 mg Q12HR GT 12/30/19 21:00 02/13/20 20:59 12/31/19 22:04 Levofloxacin (Levaquin) 750 mg DAILY GT 12/30/19 11:15 01/06/20 11:14 12/31/19 09:26 Magnesium Hydroxide (Mom) 30 ml DAILY GT 12/31/19 09:00 01/30/20 08:59 Memantine (Namenda) 10 mg DAILY GT 12/31/19 09:00 01/30/20 08:59 12/31/19 09:19 Ondansetron HCl (Zofran) 4 mg Q4H PRN GT Nausea & Vomiting 12/30/19 16:45 01/29/20 16:44 Sodium Phosphate (Fleet's Sodium Phosl Enema) 133 ml DAILYPRN PRN RECTAL constipation 12/30/19 16:45 01/29/20 16:44 Vancomycin HCl ([facility] pharmacy to dose) 1 ea DAILY PRN MISC Per rx protocol 12/31/19 12:15 01/30/20 12:14 Vancomycin HCl 1 gm/Sodium Chloride 275 ml @ 183.708 mls/hr Q12HR@0500,1700 IVPB 12/31/19 17:00 01/05/20 16:59 01/01/20 05:16 Zinc Sulfate (Zinc Sulfate) 220 mg DAILY GT 12/31/19 09:00 03/30/20 08:59 12/31/19 09:20 Assessment/Plan Assessment/Plan IMPRESSION: 1. Hypoxic respiratory failure. Improving; now on 2-4 L/min O2 2. COVID-19 pneumonia. 3. Hyperglycemia. 4. Hypertension. 5. Seizure disorder. 6. Dementia. 7. Fever DISCUSSION: She has COVID-19 pneumonia. Abx per ID Continue oxygen, pulmonary hygiene, and fluids. Remains febrile I will follow. Terrance Diaz M.D. Terrance Diaz MD Jan 01, 2020 07:13
[2020-01-01] MEDS: Memantine 10mg tab GT SCH (09:46)
[2020-01-01] MEDS: Milk of Magnesia 30ml Ud GT SCH (09:46)
[2020-01-01] MEDS: Ascorbic Acid 500mg tab GT SCH ×2 (09:47→21:25)
[2020-01-01] MEDS: Zinc Sulfate 220mg GT SCH (09:47)
[2020-01-01] MEDS: levETIRAcetam 500mg/5ml Liquid GT SCH ×2 (09:47→21:25)
[2020-01-01] MEDS: Levofloxacin 750mg tab GT SCH (09:47)
--- NOTE | 2020-01-01 12:24 | General Progress Note ---
Assessment/Plan Status: progressing Assessment/Plan: 1. History of dementia. 2. COPD. 3. Dysphagia requiring G-tube. 4. GERD. 5. Recent COVID positive pneumonia. GT has been changed GTF GT care will fu Subjective ROS Limited/Unobtainable: No Allergies: Coded Allergies: IODINE (Verified Allergy, Unknown, 12/30/19) MORPHINE (Verified Allergy, Unknown, 12/30/19) PENICILLINS (Verified Allergy, Unknown, 12/30/19) SHELLFISH DERIVED (Verified Allergy, Unknown, 12/30/19) Objective Last 24 Hour Vital Signs Date Time Temp Pulse Resp B/P (MAP) Pulse Ox O2 Delivery O2 Flow Rate FiO2 01/01/20 12:00 98.3 98 20 127/83 (98) 95 01/01/20 09:00 Nasal Cannula 2.0 01/01/20 08:00 98.2 105 20 131/80 (97) 94 01/01/20 07:46 102 01/01/20 05:45 100.9 01/01/20 04:00 109 01/01/20 04:00 100.9 115 28 133/77 (95) 94 01/01/20 00:00 99.1 109 28 140/53 (82) 94 01/01/20 00:00 103 12/31/19 23:52 104 12/31/19 23:30 Nasal Cannula 2.0 12/31/19 20:00 98.1 78 20 144/60 (88) 91 12/31/19 16:00 97.9 94 21 158/89 (112) 99 12/31/19 16:00 99 Intake and Output 12/31/19 01/01/20 19:00 07:00 Intake Total 60 ml Output Total 500 ml 500 ml Balance -500 ml -440 ml Tube Feeding 60 ml Output Urine Total 500 ml 500 ml # Bowel Movements 1 1 Laboratory Tests 01/01/20 06:20: White Blood Count 9.1, Red Blood Count 4.98, Hemoglobin 13.0, Hematocrit 42.8, Mean Corpuscular Volume 86, Mean Corpuscular Hemoglobin 26.2L, Mean Corpuscular Hemoglobin Concent 30.5L, Red Cell Distribution Width 15.2H, Platelet Count 176 , Mean Platelet Volume 8.9, Neutrophils (%) (Auto) 78.2H, Lymphocytes (%) (Auto ) 11.4L, Monocytes (%) (Auto) 9.1, Eosinophils (%) (Auto) 0.8, Basophils (%) ( Auto) 0.5, Sodium Level 137, Potassium Level 4.0, Chloride Level 102, Carbon Dioxide Level 28, Anion Gap 7, Blood Urea Nitrogen 8, Creatinine 0.5L, Estimat Glomerular Filtration Rate > 60, Glucose Level 156H, Calcium Level 8.9 Height (Feet): 5 Height (Inches): 7.00 Weight (Pounds): 200 General Appearance: no apparent distress EENT: normal ENT inspection Neck: supple Cardiovascular: normal rate Respiratory/Chest: decreased breath sounds Abdomen: normal bowel sounds, non tender, soft Extremities: non-tender Dennis Chester MD Jan 01, 2020 12:24
--- NOTE | 2020-01-01 13:08 | Infectious Diseases Prog Note ---
Assessment/Plan Assessment/Plan IMPRESSION: Streptoccocal sepsis Pneumonia, positive COVID19 COPD, Dementia, Diabetes mellitus, G-tube placement status Seizure disorder, Hypoxemia, Lactic acidosis. Penicillin allergy RECOMMENDATION: Continue Levaquin & Vancomycin We will follow up the cultures. Subjective ROS Limited/Unobtainable: Yes Constitutional: Reports: fever, other - Xz=952.9 Allergies: Coded Allergies: IODINE (Verified Allergy, Unknown, 12/30/19) MORPHINE (Verified Allergy, Unknown, 12/30/19) PENICILLINS (Verified Allergy, Unknown, 12/30/19) SHELLFISH DERIVED (Verified Allergy, Unknown, 12/30/19) Objective Vital Signs Last 24 Hour Vital Signs Date Time Temp Pulse Resp B/P (MAP) Pulse Ox O2 Delivery O2 Flow Rate FiO2 01/01/20 12:00 98.3 98 20 127/83 (98) 95 01/01/20 09:00 Nasal Cannula 2.0 01/01/20 08:00 98.2 105 20 131/80 (97) 94 01/01/20 07:46 102 01/01/20 05:45 100.9 01/01/20 04:00 109 01/01/20 04:00 100.9 115 28 133/77 (95) 94 01/01/20 00:00 99.1 109 28 140/53 (82) 94 01/01/20 00:00 103 12/31/19 23:52 104 12/31/19 23:30 Nasal Cannula 2.0 12/31/19 20:00 98.1 78 20 144/60 (88) 91 12/31/19 16:00 97.9 94 21 158/89 (112) 99 12/31/19 16:00 99 Height (Feet): 5 Height (Inches): 7.00 Weight (Pounds): 200 General Appearance: no acute distress HEENT: mucous membranes moist Respiratory/Chest: lungs clear Cardiovascular: normal rate Abdomen: soft, non tender, other - GT feeding Extremities: no edema Skin: other - skin graft, groin erythema Neurologic/Psychiatric: aphasia Microbiology Date/Time Source Procedure Growth Status 12/30/19 05:50 Blood Blood Culture - Preliminary Strep Species, Alpha Hemolytic Resulted 12/30/19 05:30 Blood Blood Culture - Preliminary Strep Species, Alpha Hemolytic Resulted 12/30/19 05:30 Nasal Nares MRSA Culture - Final NO METHICILLIN RESISTANT STAPH AUREUS... Complete 12/30/19 05:30 Nasopharynx Coronavirus COVID-19 PCR ([facility]) - Final Complete 12/30/19 05:30 Rectum - Final NO CARBAPENEM-RESISTANT ENTEROBACTERI... Complete 12/30/19 05:30 Rectum VRE Culture - Final NO VANCOMYCIN RESISTANT ENTEROCOCCUS ... Complete Laboratory Tests Test 01/01/20 06:20 White Blood Count 9.1 K/UL (4.8-10.8) Red Blood Count 4.98 M/UL (4.20-5.40) Hemoglobin 13.0 G/DL (12.0-16.0) Hematocrit 42.8 % (37.0-47.0) Mean Corpuscular Volume 86 FL (80-99) Mean Corpuscular Hemoglobin 26.2 PG (27.0-31.0) L Mean Corpuscular Hemoglobin Concent 30.5 G/DL (32.0-36.0) L Red Cell Distribution Width 15.2 % (11.6-14.8) H Platelet Count 176 K/UL (150-450) Mean Platelet Volume 8.9 FL (6.5-10.1) Neutrophils (%) (Auto) 78.2 % (45.0-75.0) H Lymphocytes (%) (Auto) 11.4 % (20.0-45.0) L Monocytes (%) (Auto) 9.1 % (1.0-10.0) Eosinophils (%) (Auto) 0.8 % (0.0-3.0) Basophils (%) (Auto) 0.5 % (0.0-2.0) Sodium Level 137 MMOL/L (136-145) Potassium Level 4.0 MMOL/L (3.5-5.1) Chloride Level 102 MMOL/L (98-107) Carbon Dioxide Level 28 MMOL/L (21-32) Anion Gap 7 mmol/L (5-15) Blood Urea Nitrogen 8 mg/dL (7-18) Creatinine 0.5 MG/DL (0.55-1.30) L Estimat Glomerular Filtration Rate > 60 mL/min (>60) Glucose Level 156 MG/DL (74-106) H Calcium Level 8.9 MG/DL (8.5-10.1) Current Medications Medications (Trade) Dose Ordered Sig/Bola Route PRN Reason Start Time Stop Time Status Last Admin Dose Admin Acetaminophen (Tylenol) 650 mg Q6H PRN RECTAL Mild Pain (Pain Scale 1-3) 12/30/19 10:15 01/29/20 10:14 01/01/20 05:15 Ascorbic Acid (Vitamin C) 1,000 mg Q12HR GT 12/30/19 21:00 01/29/20 20:59 01/01/20 09:47 Bisacodyl (Dulcolax) 10 mg DAILYPRN PRN RECTAL CONSTIPATION 12/30/19 17:00 03/29/20 16:44 Clonidine HCl (Catapres Tab) 0.1 mg Q6H PRN GT sbp>160 12/30/19 16:45 03/29/20 16:44 Clotrimazole (Lotrimin) 1 applic THREE TIMES A DAY TOPIC 12/31/19 10:00 03/30/20 09:59 01/01/20 13:01 Dextrose (Dextrose 50%) 25 ml Q30M PRN IV Hypoglycemia 12/30/19 16:45 03/29/20 16:44 Dextrose (Dextrose 50%) 50 ml Q30M PRN IV Hypoglycemia 12/30/19 16:45 03/29/20 16:44 Docusate Sodium (Colace) 100 mg BIDPRN PRN GT Constipation 12/30/19 17:00 01/29/20 16:44 Famotidine (Pepcid) 20 mg DAILY GT 12/31/19 09:00 03/30/20 08:59 01/01/20 09:47 Guaifenesin/ Dextromethorphan (Robitussin DM Syrup) 5 ml Q4H PRN GT For Cough 12/30/19 16:54 03/29/20 16:53 Heparin Sodium (Porcine) (Heparin 5000 units/ml) 5,000 units EVERY 8 HOURS SUBQ 12/30/19 22:00 02/13/20 21:59 12/31/19 15:05 Insulin Aspart (NovoLOG) Q6HR SUBQ 12/30/19 18:00 03/29/20 17:59 01/01/20 11:58 Levetiracetam (Keppra) 500 mg Q12HR GT 12/30/19 21:00 02/13/20 20:59 01/01/20 09:47 Levofloxacin (Levaquin) 750 mg DAILY GT 12/30/19 11:15 01/06/20 11:14 01/01/20 09:47 Magnesium Hydroxide (Mom) 30 ml DAILY GT 12/31/19 09:00 01/30/20 08:59 01/01/20 09:46 Memantine (Namenda) 10 mg DAILY GT 12/31/19 09:00 01/30/20 08:59 01/01/20 09:46 Ondansetron HCl (Zofran) 4 mg Q4H PRN GT Nausea & Vomiting 12/30/19 16:45 01/29/20 16:44 Sodium Phosphate (Fleet's Sodium Phosl Enema) 133 ml DAILYPRN PRN RECTAL constipation 12/30/19 16:45 01/29/20 16:44 Vancomycin HCl ([facility] pharmacy to dose) 1 ea DAILY PRN MISC Per rx protocol 12/31/19 12:15 01/30/20 12:14 Vancomycin HCl 1 gm/Sodium Chloride 275 ml @ 183.708 mls/hr Q12HR@0500,1700 IVPB 12/31/19 17:00 01/05/20 16:59 01/01/20 05:16 Zinc Sulfate (Zinc Sulfate) 220 mg DAILY GT 12/31/19 09:00 03/30/20 08:59 01/01/20 09:47 Mamadou Ramos MD Jan 01, 2020 13:08
--- NOTE | 2020-01-01 16:39 | General Progress Note ---
Assessment/Plan Problem List: (1) Respiratory distress ICD Codes: R06.03 - Acute respiratory distress SNOMED: 370443577 (2) Pneumonia due to COVID-19 virus ICD Codes: U07.1 - COVID-19; J12.89 - Other viral pneumonia SNOMED: 427872613, 330781498 Status: progressing Assessment/Plan: lyte abnormality afebrile prn oxygen positive covid pna pna resp insuff supportive rx Subjective ROS Limited/Unobtainable: Yes Allergies: Coded Allergies: IODINE (Verified Allergy, Unknown, 12/30/19) MORPHINE (Verified Allergy, Unknown, 12/30/19) PENICILLINS (Verified Allergy, Unknown, 12/30/19) SHELLFISH DERIVED (Verified Allergy, Unknown, 12/30/19) Objective Last 24 Hour Vital Signs Date Time Temp Pulse Resp B/P (MAP) Pulse Ox O2 Delivery O2 Flow Rate FiO2 01/01/20 16:00 98.8 109 18 147/70 (95) 93 01/01/20 15:34 108 01/01/20 12:00 98.3 98 20 127/83 (98) 95 01/01/20 11:51 103 01/01/20 09:00 Nasal Cannula 2.0 01/01/20 08:00 98.2 105 20 131/80 (97) 94 01/01/20 07:46 102 01/01/20 05:45 100.9 01/01/20 04:00 109 01/01/20 04:00 100.9 115 28 133/77 (95) 94 01/01/20 00:00 99.1 109 28 140/53 (82) 94 01/01/20 00:00 103 12/31/19 23:52 104 12/31/19 23:30 Nasal Cannula 2.0 12/31/19 20:00 98.1 78 20 144/60 (88) 91 Intake and Output 12/31/19 01/01/20 19:00 07:00 Intake Total 60 ml Output Total 500 ml 500 ml Balance -500 ml -440 ml Tube Feeding 60 ml Output Urine Total 500 ml 500 ml # Bowel Movements 1 1 Laboratory Tests 01/01/20 06:20: White Blood Count 9.1, Red Blood Count 4.98, Hemoglobin 13.0, Hematocrit 42.8, Mean Corpuscular Volume 86, Mean Corpuscular Hemoglobin 26.2L, Mean Corpuscular Hemoglobin Concent 30.5L, Red Cell Distribution Width 15.2H, Platelet Count 176 , Mean Platelet Volume 8.9, Neutrophils (%) (Auto) 78.2H, Lymphocytes (%) (Auto ) 11.4L, Monocytes (%) (Auto) 9.1, Eosinophils (%) (Auto) 0.8, Basophils (%) ( Auto) 0.5, Sodium Level 137, Potassium Level 4.0, Chloride Level 102, Carbon Dioxide Level 28, Anion Gap 7, Blood Urea Nitrogen 8, Creatinine 0.5L, Estimat Glomerular Filtration Rate > 60, Glucose Level 156H, Calcium Level 8.9 Height (Feet): 5 Height (Inches): 7.00 Weight (Pounds): 200 Dinah Whitney MD Jan 01, 2020 16:39
[2020-01-01] MEDS ORDERED: 1/2 NS 1000ml IV ONE (16:57)
[2020-01-02] VITALS: BP 122/89
[2020-01-02] MEDS: guaiFENesin /DM 10ml syrup GT PRN (00:36)
[2020-01-02] MEDS: Acetaminophen 650 MG SUPP RECTAL PRN ×2 (00:36→21:51)
[2020-01-02 04:00] VITALS: BP 140/80
[2020-01-02] MEDS: Heparin 5000 units/ml inj SUBQ SCH ×3 (05:25→21:27)
[2020-01-02] MEDS: Vancomycin 1 GM in NS 275 ML IVPB SCH ×3 (05:26→21:36)
[2020-01-02] MEDS: NovoLOG Insulin Flexpen SUBQ SCH ×4 (05:35→18:00)
[2020-01-02 08:00] VITALS: BP 169/89
[2020-01-02] MEDS: Milk of Magnesia 30ml Ud GT SCH (09:39)
[2020-01-02] MEDS: Memantine 10mg tab GT SCH (09:39)
[2020-01-02] MEDS: Ascorbic Acid 500mg tab GT SCH ×2 (09:40→21:27)
[2020-01-02] MEDS: levETIRAcetam 500mg/5ml Liquid GT SCH ×2 (09:40→21:26)
[2020-01-02] MEDS: Zinc Sulfate 220mg GT SCH (09:40)
[2020-01-02] MEDS: Levofloxacin 750mg tab GT SCH (09:40)
[2020-01-02 12:00] VITALS: BP 141/80
--- NOTE | 2020-01-02 14:43 | Pulmonology Progress Note ---
Subjective ROS Limited/Unobtainable: Yes Interval Events: None new Constitutional: Reports: fever, other - Yc=411.9 HEENT: Repors: no symptoms Respiratory: Reports: no symptoms Cardiovascular: Reports: no symptoms Gastrointestinal/Abdominal: Reports: no symptoms Allergies: Coded Allergies: IODINE (Verified Allergy, Unknown, 12/30/19) MORPHINE (Verified Allergy, Unknown, 12/30/19) PENICILLINS (Verified Allergy, Unknown, 12/30/19) SHELLFISH DERIVED (Verified Allergy, Unknown, 12/30/19) Objective Last 24 Hour Vital Signs Date Time Temp Pulse Resp B/P (MAP) Pulse Ox O2 Delivery O2 Flow Rate FiO2 01/02/20 12:00 105 01/02/20 09:57 169/89 01/02/20 09:00 Nasal Cannula 2.0 01/02/20 08:00 102 01/02/20 08:00 97.5 105 20 169/89 (115) 98 01/02/20 04:00 100 01/02/20 04:00 101.5 102 28 140/80 (100) 89 01/02/20 01:06 101.5 01/02/20 00:00 101.8 103 28 122/89 (100) 91 01/02/20 00:00 105 01/01/20 21:00 Nasal Cannula 2.0 01/01/20 20:00 101.8 109 28 158/86 (110) 92 01/01/20 16:00 98.8 109 18 147/70 (95) 93 01/01/20 15:34 108 Intake and Output 01/01/20 01/02/20 19:00 07:00 Intake Total 920 ml Output Total 500 ml 700 ml Balance 420 ml -700 ml Free Water 200 ml Tube Feeding 720 ml Output Urine Total 500 ml 700 ml # Bowel Movements 1 General Appearance: no acute distress HEENT: normocephalic Respiratory: chest wall non-tender, decreased breath sounds Cardiovascular: normal peripheral pulses, normal rate Abdomen: normal bowel sounds Laboratory Tests 01/02/20 04:20: Vancomycin Level Trough 7.0 Current Medications Medications (Trade) Dose Ordered Sig/Bola Route PRN Reason Start Time Stop Time Status Last Admin Dose Admin Acetaminophen (Tylenol) 650 mg Q6H PRN RECTAL Mild Pain (Pain Scale 1-3) 12/30/19 10:15 01/29/20 10:14 01/02/20 00:36 Ascorbic Acid (Vitamin C) 1,000 mg Q12HR GT 12/30/19 21:00 01/29/20 20:59 01/02/20 09:40 Bisacodyl (Dulcolax) 10 mg DAILYPRN PRN RECTAL CONSTIPATION 12/30/19 17:00 03/29/20 16:44 Clonidine HCl (Catapres Tab) 0.1 mg Q6H PRN GT sbp>160 12/30/19 16:45 03/29/20 16:44 01/02/20 09:57 Clotrimazole (Lotrimin) 1 applic THREE TIMES A DAY TOPIC 12/31/19 10:00 03/30/20 09:59 01/02/20 12:51 Dextrose (Dextrose 50%) 25 ml Q30M PRN IV Hypoglycemia 12/30/19 16:45 03/29/20 16:44 Dextrose (Dextrose 50%) 50 ml Q30M PRN IV Hypoglycemia 12/30/19 16:45 03/29/20 16:44 Docusate Sodium (Colace) 100 mg BIDPRN PRN GT Constipation 12/30/19 17:00 01/29/20 16:44 Famotidine (Pepcid) 20 mg DAILY GT 12/31/19 09:00 03/30/20 08:59 01/02/20 09:39 Guaifenesin/ Dextromethorphan (Robitussin DM Syrup) 5 ml Q4H PRN GT For Cough 12/30/19 16:54 03/29/20 16:53 01/02/20 00:36 Heparin Sodium (Porcine) (Heparin 5000 units/ml) 5,000 units EVERY 8 HOURS SUBQ 12/30/19 22:00 02/13/20 21:59 01/02/20 12:51 Insulin Aspart (NovoLOG) Q6HR SUBQ 12/30/19 18:00 03/29/20 17:59 01/02/20 13:07 Levetiracetam (Keppra) 500 mg Q12HR GT 12/30/19 21:00 02/13/20 20:59 01/02/20 09:40 Levofloxacin (Levaquin) 750 mg DAILY GT 12/30/19 11:15 01/06/20 11:14 01/02/20 09:40 Magnesium Hydroxide (Mom) 30 ml DAILY GT 12/31/19 09:00 01/30/20 08:59 01/02/20 09:39 Memantine (Namenda) 10 mg DAILY GT 12/31/19 09:00 01/30/20 08:59 01/02/20 09:39 Ondansetron HCl (Zofran) 4 mg Q4H PRN GT Nausea & Vomiting 12/30/19 16:45 01/29/20 16:44 Sodium Phosphate (Fleet's Sodium Phosl Enema) 133 ml DAILYPRN PRN RECTAL constipation 12/30/19 16:45 01/29/20 16:44 Vancomycin HCl (Vanco pharmacy to dose) 1 ea DAILY PRN MISC Per rx protocol 12/31/19 12:15 01/30/20 12:14 Vancomycin HCl 1 gm/Sodium Chloride 275 ml @ 183.708 mls/hr Q8H IVPB 01/02/20 13:00 01/07/20 12:59 01/02/20 12:50 Zinc Sulfate (Zinc Sulfate) 220 mg DAILY GT 12/31/19 09:00 03/30/20 08:59 01/02/20 09:40 Assessment/Plan Assessment/Plan IMPRESSION: 1. Hypoxic respiratory failure. Improving; now on 2-4 L/min O2 2. COVID-19 pneumonia. 3. Hyperglycemia. 4. Hypertension. 5. Seizure disorder. 6. Dementia. 7. Fever DISCUSSION: She has COVID-19 pneumonia. Abx per ID Continue oxygen, pulmonary hygiene, and fluids. Remains febrile I will follow. Ramon Wiggins Omar Syed MD Jan 02, 2020 14:43
--- NOTE | 2020-01-02 15:48 | General Progress Note ---
Assessment/Plan Problem List: (1) Respiratory distress ICD Codes: R06.03 - Acute respiratory distress SNOMED: 172218103 (2) Pneumonia due to COVID-19 virus ICD Codes: U07.1 - COVID-19; J12.89 - Other viral pneumonia SNOMED: 269840000, 990466438 Status: progressing Assessment/Plan: resp insuff no wheezing positive covid pna pna Subjective ROS Limited/Unobtainable: Yes Allergies: Coded Allergies: IODINE (Verified Allergy, Unknown, 12/30/19) MORPHINE (Verified Allergy, Unknown, 12/30/19) PENICILLINS (Verified Allergy, Unknown, 12/30/19) SHELLFISH DERIVED (Verified Allergy, Unknown, 12/30/19) Objective Last 24 Hour Vital Signs Date Time Temp Pulse Resp B/P (MAP) Pulse Ox O2 Delivery O2 Flow Rate FiO2 01/02/20 12:00 105 01/02/20 09:57 169/89 01/02/20 09:00 Nasal Cannula 2.0 01/02/20 08:00 102 01/02/20 08:00 97.5 105 20 169/89 (115) 98 01/02/20 04:00 100 01/02/20 04:00 101.5 102 28 140/80 (100) 89 01/02/20 01:06 101.5 01/02/20 00:00 101.8 103 28 122/89 (100) 91 01/02/20 00:00 105 01/01/20 21:00 Nasal Cannula 2.0 01/01/20 20:00 101.8 109 28 158/86 (110) 92 01/01/20 16:00 98.8 109 18 147/70 (95) 93 Intake and Output 01/01/20 01/02/20 19:00 07:00 Intake Total 920 ml Output Total 500 ml 700 ml Balance 420 ml -700 ml Free Water 200 ml Tube Feeding 720 ml Output Urine Total 500 ml 700 ml # Bowel Movements 1 Laboratory Tests 01/02/20 04:20: Vancomycin Level Trough 7.0 Height (Feet): 5 Height (Inches): 7.00 Weight (Pounds): 200 Dinah Whitney MD Jan 02, 2020 15:48
[2020-01-02 16:00] VITALS: BP 115/78
[2020-01-02 20:00] VITALS: BP 115/78
[2020-01-03] VITALS: BP 135/71
[2020-01-03] MEDS: NovoLOG Insulin Flexpen SUBQ SCH ×4 (00:22→17:55)
[2020-01-03 04:00] VITALS: BP 144/80
[2020-01-03] MEDS: Vancomycin 1 GM in NS 275 ML IVPB SCH ×3 (05:00→21:24)
[2020-01-03] MEDS: Heparin 5000 units/ml inj SUBQ SCH ×3 (05:46→21:25)
[2020-01-03 07:48] LABS: BASOPHILS % (AUTO) 1.1 % (0.0-2.0); EOSINOPHILS % (AUTO) 0.5 % (0.0-3.0); HEMATOCRIT 42.4 % (37.0-47.0); LYMPHOCYTES % (AUTO) 15.6 % (20.0-45.0); MEAN CORPUSCULAR VOLUME 84 FL (80-99); MONOCYTES % (AUTO) 9.8 % (1.0-10.0); PLATELET COUNT 263 K/UL (150-450); RED BLOOD COUNT 5.02 M/UL (4.20-5.40); RED CELL DISTRIBUTION WIDTH 14.1 % (11.6-14.8); WHITE BLOOD COUNT 10.5 K/UL (4.8-10.8)
[2020-01-03 08:00] VITALS: BP 138/78
[2020-01-03 08:01] LABS: ANION GAP 7 mmol/L (5-15); BLOOD UREA NITROGEN 10 mg/dL (7-18); CALCIUM 9.1 MG/DL (8.5-10.1); CARBON DIOXIDE 29 MMOL/L (21-32); CHLORIDE 103 MMOL/L (98-107); CREATININE 0.5 MG/DL (0.55-1.30); POTASSIUM 4.5 MMOL/L (3.5-5.1); SODIUM 139 MMOL/L (136-145)
--- NOTE | 2020-01-03 09:26 | General Progress Note ---
Assessment/Plan Problem List: (1) Respiratory distress ICD Codes: R06.03 - Acute respiratory distress SNOMED: 746517737 (2) Pneumonia due to COVID-19 virus ICD Codes: U07.1 - COVID-19; J12.89 - Other viral pneumonia SNOMED: 595221014, 764439154 Status: progressing Assessment/Plan: resp insuff lyte abnormality supportive therapy positive covid pna pna Subjective ROS Limited/Unobtainable: Yes Allergies: Coded Allergies: IODINE (Verified Allergy, Unknown, 12/30/19) MORPHINE (Verified Allergy, Unknown, 12/30/19) PENICILLINS (Verified Allergy, Unknown, 12/30/19) SHELLFISH DERIVED (Verified Allergy, Unknown, 12/30/19) Objective Last 24 Hour Vital Signs Date Time Temp Pulse Resp B/P (MAP) Pulse Ox O2 Delivery O2 Flow Rate FiO2 01/03/20 08:00 98.8 105 22 138/78 (98) 93 01/03/20 04:00 97.7 98 21 144/80 (101) 92 01/03/20 04:00 96 01/03/20 00:00 99 01/03/20 00:00 97.3 97 21 135/71 (92) 97 01/02/20 22:21 98.8 01/02/20 21:00 Nasal Cannula 2.0 01/02/20 20:00 100.9 106 22 115/78 (90) 97 01/02/20 20:00 106 01/02/20 16:00 97.5 104 20 115/78 (90) 98 01/02/20 16:00 101 01/02/20 12:00 105 01/02/20 12:00 99.5 108 20 141/80 (100) 95 01/02/20 09:57 169/89 Intake and Output 01/02/20 01/03/20 19:00 07:00 Intake Total 60 ml Output Total 400 ml 720 ml Balance -400 ml -660 ml Tube Feeding 60 ml Output Urine Total 400 ml 720 ml # Voids 1 # Bowel Movements 1 1 Laboratory Tests 01/03/20 06:50: White Blood Count 10.5, Red Blood Count 5.02, Hemoglobin 13.0, Hematocrit 42.4, Mean Corpuscular Volume 84, Mean Corpuscular Hemoglobin 25.9L, Mean Corpuscular Hemoglobin Concent 30.6L, Red Cell Distribution Width 14.1, Platelet Count 263, Mean Platelet Volume 8.7, Neutrophils (%) (Auto) 73.0, Lymphocytes (%) (Auto) 15.6L, Monocytes (%) (Auto) 9.8, Eosinophils (%) (Auto) 0.5, Basophils (%) (Auto ) 1.1, Sodium Level 139, Potassium Level 4.5, Chloride Level 103, Carbon Dioxide Level 29, Anion Gap 7, Blood Urea Nitrogen 10, Creatinine 0.5L, Estimat Glomerular Filtration Rate > 60, Glucose Level 144H, Calcium Level 9.1 Height (Feet): 5 Height (Inches): 7.00 Weight (Pounds): 200 Dinah Whitney MD Jan 03, 2020 09:26
[2020-01-03] MEDS: Ascorbic Acid 500mg tab GT SCH ×2 (09:47→21:24)
[2020-01-03] MEDS: Milk of Magnesia 30ml Ud GT SCH (09:48)
[2020-01-03] MEDS: Levofloxacin 750mg tab GT SCH (09:48)
[2020-01-03] MEDS: Memantine 10mg tab GT SCH (09:48)
[2020-01-03] MEDS: levETIRAcetam 500mg/5ml Liquid GT SCH ×2 (09:48→21:24)
[2020-01-03] MEDS: Zinc Sulfate 220mg GT SCH (09:48)
[2020-01-03] MEDS: guaiFENesin /DM 10ml syrup GT PRN ×2 (09:48→17:27)
[2020-01-03 11:55] VITALS: BP 151/87
--- NOTE | 2020-01-03 12:06 | Pulmonology Progress Note ---
Subjective ROS Limited/Unobtainable: Yes Interval Events: None new Constitutional: Reports: fever, other - Et=885.9 HEENT: Repors: no symptoms Respiratory: Reports: no symptoms Cardiovascular: Reports: no symptoms Gastrointestinal/Abdominal: Reports: no symptoms Allergies: Coded Allergies: IODINE (Verified Allergy, Unknown, 12/30/19) MORPHINE (Verified Allergy, Unknown, 12/30/19) PENICILLINS (Verified Allergy, Unknown, 12/30/19) SHELLFISH DERIVED (Verified Allergy, Unknown, 12/30/19) Objective Last 24 Hour Vital Signs Date Time Temp Pulse Resp B/P (MAP) Pulse Ox O2 Delivery O2 Flow Rate FiO2 01/03/20 11:55 99.0 104 22 151/87 (108) 94 01/03/20 09:00 Nasal Cannula 2.0 01/03/20 08:00 98.8 105 22 138/78 (98) 93 01/03/20 07:45 97 01/03/20 04:00 97.7 98 21 144/80 (101) 92 01/03/20 04:00 96 01/03/20 00:00 99 01/03/20 00:00 97.3 97 21 135/71 (92) 97 01/02/20 22:21 98.8 01/02/20 21:00 Nasal Cannula 2.0 01/02/20 20:00 100.9 106 22 115/78 (90) 97 01/02/20 20:00 106 01/02/20 16:00 97.5 104 20 115/78 (90) 98 01/02/20 16:00 101 Intake and Output 01/02/20 01/03/20 19:00 07:00 Intake Total 60 ml Output Total 400 ml 720 ml Balance -400 ml -660 ml Tube Feeding 60 ml Output Urine Total 400 ml 720 ml # Voids 1 # Bowel Movements 1 1 General Appearance: no acute distress HEENT: normocephalic Respiratory: chest wall non-tender, decreased breath sounds Cardiovascular: normal peripheral pulses, normal rate Abdomen: normal bowel sounds Laboratory Tests 01/03/20 06:50: White Blood Count 10.5, Red Blood Count 5.02, Hemoglobin 13.0, Hematocrit 42.4, Mean Corpuscular Volume 84, Mean Corpuscular Hemoglobin 25.9L, Mean Corpuscular Hemoglobin Concent 30.6L, Red Cell Distribution Width 14.1, Platelet Count 263, Mean Platelet Volume 8.7, Neutrophils (%) (Auto) 73.0, Lymphocytes (%) (Auto) 15.6L, Monocytes (%) (Auto) 9.8, Eosinophils (%) (Auto) 0.5, Basophils (%) (Auto ) 1.1, Sodium Level 139, Potassium Level 4.5, Chloride Level 103, Carbon Dioxide Level 29, Anion Gap 7, Blood Urea Nitrogen 10, Creatinine 0.5L, Estimat Glomerular Filtration Rate > 60, Glucose Level 144H, Calcium Level 9.1 Current Medications Medications (Trade) Dose Ordered Sig/Bola Route PRN Reason Start Time Stop Time Status Last Admin Dose Admin Acetaminophen (Tylenol) 650 mg Q6H PRN RECTAL Mild Pain (Pain Scale 1-3) 12/30/19 10:15 01/29/20 10:14 01/02/20 21:51 Ascorbic Acid (Vitamin C) 1,000 mg Q12HR GT 12/30/19 21:00 01/29/20 20:59 01/03/20 09:47 Bisacodyl (Dulcolax) 10 mg DAILYPRN PRN RECTAL CONSTIPATION 12/30/19 17:00 03/29/20 16:44 Clonidine HCl (Catapres Tab) 0.1 mg Q6H PRN GT sbp>160 12/30/19 16:45 03/29/20 16:44 01/02/20 09:57 Clotrimazole (Lotrimin) 1 applic THREE TIMES A DAY TOPIC 12/31/19 10:00 03/30/20 09:59 01/03/20 09:00 Dextrose (Dextrose 50%) 25 ml Q30M PRN IV Hypoglycemia 12/30/19 16:45 03/29/20 16:44 Dextrose (Dextrose 50%) 50 ml Q30M PRN IV Hypoglycemia 12/30/19 16:45 03/29/20 16:44 Docusate Sodium (Colace) 100 mg BIDPRN PRN GT Constipation 12/30/19 17:00 01/29/20 16:44 Famotidine (Pepcid) 20 mg DAILY GT 12/31/19 09:00 03/30/20 08:59 01/03/20 09:48 Guaifenesin/ Dextromethorphan (Robitussin DM Syrup) 5 ml Q4H PRN GT For Cough 12/30/19 16:54 03/29/20 16:53 01/03/20 09:48 Heparin Sodium (Porcine) (Heparin 5000 units/ml) 5,000 units EVERY 8 HOURS SUBQ 12/30/19 22:00 02/13/20 21:59 01/03/20 05:46 Insulin Aspart (NovoLOG) Q6HR SUBQ 12/30/19 18:00 03/29/20 17:59 01/03/20 11:55 Levetiracetam (Keppra) 500 mg Q12HR GT 12/30/19 21:00 02/13/20 20:59 01/03/20 09:48 Levofloxacin (Levaquin) 750 mg DAILY GT 12/30/19 11:15 01/06/20 11:14 01/03/20 09:48 Magnesium Hydroxide (Mom) 30 ml DAILY GT 12/31/19 09:00 01/30/20 08:59 01/03/20 09:48 Memantine (Namenda) 10 mg DAILY GT 12/31/19 09:00 01/30/20 08:59 01/03/20 09:48 Ondansetron HCl (Zofran) 4 mg Q4H PRN GT Nausea & Vomiting 12/30/19 16:45 01/29/20 16:44 Sodium Phosphate (Fleet's Sodium Phosl Enema) 133 ml DAILYPRN PRN RECTAL constipation 12/30/19 16:45 01/29/20 16:44 Vancomycin HCl (Vanco pharmacy to dose) 1 ea DAILY PRN MISC Per rx protocol 12/31/19 12:15 01/30/20 12:14 Vancomycin HCl 1 gm/Sodium Chloride 275 ml @ 183.708 mls/hr Q8H IVPB 01/02/20 13:00 01/07/20 12:59 01/03/20 12:01 Zinc Sulfate (Zinc Sulfate) 220 mg DAILY GT 12/31/19 09:00 03/30/20 08:59 01/03/20 09:48 Assessment/Plan Assessment/Plan IMPRESSION: 1. Hypoxic respiratory failure. Improving; now on 2-4 L/min O2 2. COVID-19 pneumonia. 3. Hyperglycemia. 4. Hypertension. 5. Seizure disorder. 6. Dementia. 7. Fever DISCUSSION: She has COVID-19 pneumonia. Abx per ID Continue oxygen, pulmonary hygiene, and fluids. Remains febrile; Tm 100.9 yesterday I will follow. Ramon Wiggins Omar Syed MD Jan 03, 2020 12:06
--- NOTE | 2020-01-03 13:11 | Infectious Diseases Prog Note ---
Assessment/Plan Assessment/Plan IMPRESSION: Enterococcus sepsis Pneumonia, positive COVID19 COPD, Dementia, Diabetes mellitus, G-tube placement status Seizure disorder, Hypoxemia, Lactic acidosis. Penicillin allergy RECOMMENDATION: Continue Levaquin & Vancomycin We will repeat blood culture cultures. Echocardiogram & Abdominal US Subjective ROS Limited/Unobtainable: Yes Constitutional: Reports: fever, other - last night Allergies: Coded Allergies: IODINE (Verified Allergy, Unknown, 12/30/19) MORPHINE (Verified Allergy, Unknown, 12/30/19) PENICILLINS (Verified Allergy, Unknown, 12/30/19) SHELLFISH DERIVED (Verified Allergy, Unknown, 12/30/19) Objective Vital Signs Last 24 Hour Vital Signs Date Time Temp Pulse Resp B/P (MAP) Pulse Ox O2 Delivery O2 Flow Rate FiO2 01/03/20 11:55 99.0 104 22 151/87 (108) 94 01/03/20 11:42 104 01/03/20 09:00 Nasal Cannula 2.0 01/03/20 08:00 98.8 105 22 138/78 (98) 93 01/03/20 07:45 97 01/03/20 04:00 97.7 98 21 144/80 (101) 92 01/03/20 04:00 96 01/03/20 00:00 99 01/03/20 00:00 97.3 97 21 135/71 (92) 97 01/02/20 22:21 98.8 01/02/20 21:00 Nasal Cannula 2.0 01/02/20 20:00 100.9 106 22 115/78 (90) 97 01/02/20 20:00 106 01/02/20 16:00 97.5 104 20 115/78 (90) 98 01/02/20 16:00 101 Height (Feet): 5 Height (Inches): 7.00 Weight (Pounds): 200 General Appearance: no acute distress HEENT: mucous membranes moist Respiratory/Chest: other - oxygen by nasal cannula Abdomen: soft, non tender, other - GT feeding Neurologic/Psychiatric: aphasia Laboratory Tests Test 01/03/20 06:50 White Blood Count 10.5 K/UL (4.8-10.8) Red Blood Count 5.02 M/UL (4.20-5.40) Hemoglobin 13.0 G/DL (12.0-16.0) Hematocrit 42.4 % (37.0-47.0) Mean Corpuscular Volume 84 FL (80-99) Mean Corpuscular Hemoglobin 25.9 PG (27.0-31.0) L Mean Corpuscular Hemoglobin Concent 30.6 G/DL (32.0-36.0) L Red Cell Distribution Width 14.1 % (11.6-14.8) Platelet Count 263 K/UL (150-450) Mean Platelet Volume 8.7 FL (6.5-10.1) Neutrophils (%) (Auto) 73.0 % (45.0-75.0) Lymphocytes (%) (Auto) 15.6 % (20.0-45.0) L Monocytes (%) (Auto) 9.8 % (1.0-10.0) Eosinophils (%) (Auto) 0.5 % (0.0-3.0) Basophils (%) (Auto) 1.1 % (0.0-2.0) Sodium Level 139 MMOL/L (136-145) Potassium Level 4.5 MMOL/L (3.5-5.1) Chloride Level 103 MMOL/L (98-107) Carbon Dioxide Level 29 MMOL/L (21-32) Anion Gap 7 mmol/L (5-15) Blood Urea Nitrogen 10 mg/dL (7-18) Creatinine 0.5 MG/DL (0.55-1.30) L Estimat Glomerular Filtration Rate > 60 mL/min (>60) Glucose Level 144 MG/DL (74-106) H Calcium Level 9.1 MG/DL (8.5-10.1) Current Medications Medications (Trade) Dose Ordered Sig/Bola Route PRN Reason Start Time Stop Time Status Last Admin Dose Admin Acetaminophen (Tylenol) 650 mg Q6H PRN RECTAL Mild Pain (Pain Scale 1-3) 12/30/19 10:15 01/29/20 10:14 01/02/20 21:51 Ascorbic Acid (Vitamin C) 1,000 mg Q12HR GT 12/30/19 21:00 01/29/20 20:59 01/03/20 09:47 Bisacodyl (Dulcolax) 10 mg DAILYPRN PRN RECTAL CONSTIPATION 12/30/19 17:00 03/29/20 16:44 Clonidine HCl (Catapres Tab) 0.1 mg Q6H PRN GT sbp>160 12/30/19 16:45 03/29/20 16:44 01/02/20 09:57 Clotrimazole (Lotrimin) 1 applic THREE TIMES A DAY TOPIC 12/31/19 10:00 03/30/20 09:59 01/03/20 13:04 Dextrose (Dextrose 50%) 25 ml Q30M PRN IV Hypoglycemia 12/30/19 16:45 03/29/20 16:44 Dextrose (Dextrose 50%) 50 ml Q30M PRN IV Hypoglycemia 12/30/19 16:45 03/29/20 16:44 Docusate Sodium (Colace) 100 mg BIDPRN PRN GT Constipation 12/30/19 17:00 01/29/20 16:44 Famotidine (Pepcid) 20 mg DAILY GT 12/31/19 09:00 03/30/20 08:59 01/03/20 09:48 Guaifenesin/ Dextromethorphan (Robitussin DM Syrup) 5 ml Q4H PRN GT For Cough 12/30/19 16:54 03/29/20 16:53 01/03/20 09:48 Heparin Sodium (Porcine) (Heparin 5000 units/ml) 5,000 units EVERY 8 HOURS SUBQ 12/30/19 22:00 02/13/20 21:59 01/03/20 05:46 Insulin Aspart (NovoLOG) Q6HR SUBQ 12/30/19 18:00 03/29/20 17:59 01/03/20 11:55 Levetiracetam (Keppra) 500 mg Q12HR GT 12/30/19 21:00 02/13/20 20:59 01/03/20 09:48 Levofloxacin (Levaquin) 750 mg DAILY GT 12/30/19 11:15 01/06/20 11:14 01/03/20 09:48 Magnesium Hydroxide (Mom) 30 ml DAILY GT 12/31/19 09:00 01/30/20 08:59 01/03/20 09:48 Memantine (Namenda) 10 mg DAILY GT 12/31/19 09:00 01/30/20 08:59 01/03/20 09:48 Ondansetron HCl (Zofran) 4 mg Q4H PRN GT Nausea & Vomiting 12/30/19 16:45 01/29/20 16:44 Sodium Phosphate (Fleet's Sodium Phosl Enema) 133 ml DAILYPRN PRN RECTAL constipation 12/30/19 16:45 01/29/20 16:44 Vancomycin HCl (Vanco pharmacy to dose) 1 ea DAILY PRN MISC Per rx protocol 12/31/19 12:15 01/30/20 12:14 Vancomycin HCl 1 gm/Sodium Chloride 275 ml @ 183.708 mls/hr Q8H IVPB 01/02/20 13:00 01/07/20 12:59 01/03/20 12:01 Zinc Sulfate (Zinc Sulfate) 220 mg DAILY GT 12/31/19 09:00 03/30/20 08:59 01/03/20 09:48 Mamadou Ramos MD Jan 03, 2020 13:11
[2020-01-03] MEDS ORDERED: Acetaminophen 650 MG SUPP RECTAL PRN (15:30)
[2020-01-03 16:00] VITALS: BP 128/77
[2020-01-03 20:00] VITALS: BP 148/88
[2020-01-04] VITALS: BP 139/89
[2020-01-04] MEDS: guaiFENesin /DM 10ml syrup GT PRN (01:22)
[2020-01-04 04:00] VITALS: BP 127/87
[2020-01-04] MEDS: Vancomycin 1 GM in NS 275 ML IVPB SCH ×3 (05:14→20:47)
[2020-01-04] MEDS: NovoLOG Insulin Flexpen SUBQ SCH ×5 (05:39→23:53)
[2020-01-04] MEDS: Heparin 5000 units/ml inj SUBQ SCH ×3 (05:39→21:01)
[2020-01-04] MEDS ORDERED: Acetaminophen 650 MG SUPP RECTAL PRN (06:45)
[2020-01-04] MEDS ORDERED: Acetaminophen 650mg/20.3ml GT PRN (06:45)
[2020-01-04 07:02] LABS: BASOPHILS % (AUTO) 1.1 % (0.0-2.0); EOSINOPHILS % (AUTO) 0.9 % (0.0-3.0); HEMATOCRIT 39.4 % (37.0-47.0); HEMOGLOBIN 12.1 G/DL (12.0-16.0); LYMPHOCYTES % (AUTO) 18.1 % (20.0-45.0); MEAN CORPUSCULAR VOLUME 85 FL (80-99); MONOCYTES % (AUTO) 11.6 % (1.0-10.0); NEUTROPHILS % (AUTO) 68.3 % (45.0-75.0); PLATELET COUNT 357 K/UL (150-450); RED BLOOD COUNT 4.65 M/UL (4.20-5.40); RED CELL DISTRIBUTION WIDTH 14.4 % (11.6-14.8); WHITE BLOOD COUNT 10.9 K/UL (4.8-10.8)
[2020-01-04 07:36] LABS: ANION GAP 8 mmol/L (5-15); BLOOD UREA NITROGEN 10 mg/dL (7-18); CALCIUM 9.3 MG/DL (8.5-10.1); CARBON DIOXIDE 28 MMOL/L (21-32); CHLORIDE 102 MMOL/L (98-107); CREATININE 0.5 MG/DL (0.55-1.30); POTASSIUM 4.3 MMOL/L (3.5-5.1); SODIUM 138 MMOL/L (136-145)
[2020-01-04 08:00] VITALS: BP 132/89
[2020-01-04] MEDS: Memantine 10mg tab GT SCH (08:56)
[2020-01-04] MEDS: Milk of Magnesia 30ml Ud GT SCH (08:57)
[2020-01-04] MEDS: levETIRAcetam 500mg/5ml Liquid GT SCH ×2 (08:57→20:47)
[2020-01-04] MEDS: Zinc Sulfate 220mg GT SCH (08:57)
[2020-01-04] MEDS: Ascorbic Acid 500mg tab GT SCH ×2 (08:57→20:47)
[2020-01-04] MEDS: Levofloxacin 750mg tab GT SCH (09:12)
--- NOTE | 2020-01-04 09:48 | General Progress Note ---
Assessment/Plan Status: progressing Assessment/Plan: 1. History of dementia. 2. COPD. 3. Dysphagia requiring G-tube. 4. GERD. 5. Recent COVID positive pneumonia. GT has been changed GTF GT care will fu Subjective ROS Limited/Unobtainable: No Allergies: Coded Allergies: IODINE (Verified Allergy, Unknown, 12/30/19) MORPHINE (Verified Allergy, Unknown, 12/30/19) PENICILLINS (Verified Allergy, Unknown, 12/30/19) SHELLFISH DERIVED (Verified Allergy, Unknown, 12/30/19) Objective Last 24 Hour Vital Signs Date Time Temp Pulse Resp B/P (MAP) Pulse Ox O2 Delivery O2 Flow Rate FiO2 01/04/20 08:00 97.9 94 22 132/89 (103) 93 01/04/20 04:00 97.7 133 19 127/87 (100) 91 01/04/20 04:00 135 01/04/20 02:08 97.7 01/04/20 00:00 103 01/04/20 00:00 100.8 105 22 139/89 (106) 89 01/03/20 21:00 Nasal Cannula 2.0 01/03/20 20:00 99.0 107 19 148/88 (108) 88 01/03/20 20:00 106 01/03/20 16:00 97.7 109 22 128/77 (94) 94 01/03/20 15:41 106 01/03/20 11:55 99.0 104 22 151/87 (108) 94 01/03/20 11:42 104 Intake and Output 01/03/20 01/04/20 19:00 07:00 Intake Total 1135.000 ml Output Total 500 ml 1100 ml Balance 635.000 ml -1100 ml Free Water 200 ml IV Total 275.000 ml Tube Feeding 660 ml Output Urine Total 500 ml 1100 ml # Bowel Movements 1 Laboratory Tests 01/03/20 20:15: Vancomycin Level Trough 14.0H 01/04/20 05:52: White Blood Count 10.9H, Red Blood Count 4.65, Hemoglobin 12.1, Hematocrit 39.4 , Mean Corpuscular Volume 85, Mean Corpuscular Hemoglobin 26.1L, Mean Corpuscular Hemoglobin Concent 30.8L, Red Cell Distribution Width 14.4, Platelet Count 357, Mean Platelet Volume 9.0, Neutrophils (%) (Auto) 68.3, Lymphocytes (%) (Auto) 18.1L, Monocytes (%) (Auto) 11.6H, Eosinophils (%) (Auto ) 0.9, Basophils (%) (Auto) 1.1, Sodium Level 138, Potassium Level 4.3, Chloride Level 102, Carbon Dioxide Level 28, Anion Gap 8, Blood Urea Nitrogen 10 , Creatinine 0.5L, Estimat Glomerular Filtration Rate > 60, Glucose Level 128H, Calcium Level 9.3 Height (Feet): 5 Height (Inches): 7.00 Weight (Pounds): 200 General Appearance: no apparent distress EENT: PERRL/EOMI Neck: supple Cardiovascular: normal rate Respiratory/Chest: decreased breath sounds Abdomen: normal bowel sounds, non tender, soft Extremities: non-tender Dennis Chester MD Jan 04, 2020 09:48
--- NOTE | 2020-01-04 10:05 | Pulmonology Progress Note ---
Subjective ROS Limited/Unobtainable: No Interval Events: None new Constitutional: Reports: fever, other - last night HEENT: Repors: no symptoms Respiratory: Reports: no symptoms Cardiovascular: Reports: no symptoms Gastrointestinal/Abdominal: Reports: no symptoms Allergies: Coded Allergies: IODINE (Verified Allergy, Unknown, 12/30/19) MORPHINE (Verified Allergy, Unknown, 12/30/19) PENICILLINS (Verified Allergy, Unknown, 12/30/19) SHELLFISH DERIVED (Verified Allergy, Unknown, 12/30/19) Objective Last 24 Hour Vital Signs Date Time Temp Pulse Resp B/P (MAP) Pulse Ox O2 Delivery O2 Flow Rate FiO2 01/04/20 08:00 97.9 94 22 132/89 (103) 93 01/04/20 04:00 97.7 133 19 127/87 (100) 91 01/04/20 04:00 135 01/04/20 02:08 97.7 01/04/20 00:00 103 01/04/20 00:00 100.8 105 22 139/89 (106) 89 01/03/20 21:00 Nasal Cannula 2.0 01/03/20 20:00 99.0 107 19 148/88 (108) 88 01/03/20 20:00 106 01/03/20 16:00 97.7 109 22 128/77 (94) 94 01/03/20 15:41 106 01/03/20 11:55 99.0 104 22 151/87 (108) 94 01/03/20 11:42 104 Intake and Output 01/03/20 01/04/20 19:00 07:00 Intake Total 1135.000 ml Output Total 500 ml 1100 ml Balance 635.000 ml -1100 ml Free Water 200 ml IV Total 275.000 ml Tube Feeding 660 ml Output Urine Total 500 ml 1100 ml # Bowel Movements 1 General Appearance: no acute distress HEENT: normocephalic Respiratory: chest wall non-tender, decreased breath sounds Cardiovascular: normal peripheral pulses, normal rate Abdomen: normal bowel sounds Laboratory Tests 01/03/20 20:15: Vancomycin Level Trough 14.0H 01/04/20 05:52: White Blood Count 10.9H, Red Blood Count 4.65, Hemoglobin 12.1, Hematocrit 39.4 , Mean Corpuscular Volume 85, Mean Corpuscular Hemoglobin 26.1L, Mean Corpuscular Hemoglobin Concent 30.8L, Red Cell Distribution Width 14.4, Platelet Count 357, Mean Platelet Volume 9.0, Neutrophils (%) (Auto) 68.3, Lymphocytes (%) (Auto) 18.1L, Monocytes (%) (Auto) 11.6H, Eosinophils (%) (Auto ) 0.9, Basophils (%) (Auto) 1.1, Sodium Level 138, Potassium Level 4.3, Chloride Level 102, Carbon Dioxide Level 28, Anion Gap 8, Blood Urea Nitrogen 10 , Creatinine 0.5L, Estimat Glomerular Filtration Rate > 60, Glucose Level 128H, Calcium Level 9.3 Current Medications Medications (Trade) Dose Ordered Sig/Bola Route PRN Reason Start Time Stop Time Status Last Admin Dose Admin Acetaminophen (Tylenol) 650 mg Q4H PRN GT Mild Pain / T>100.4 01/04/20 06:45 02/03/20 06:44 Acetaminophen (Tylenol) 650 mg Q6H PRN RECTAL Mild Pain/fever 01/04/20 06:45 01/29/20 15:29 Ascorbic Acid (Vitamin C) 1,000 mg Q12HR GT 12/30/19 21:00 01/29/20 20:59 01/04/20 08:57 Bisacodyl (Dulcolax) 10 mg DAILYPRN PRN RECTAL CONSTIPATION 12/30/19 17:00 03/29/20 16:44 Clonidine HCl (Catapres Tab) 0.1 mg Q6H PRN GT sbp>160 12/30/19 16:45 03/29/20 16:44 01/02/20 09:57 Clotrimazole (Lotrimin) 1 applic THREE TIMES A DAY TOPIC 12/31/19 10:00 03/30/20 09:59 01/04/20 08:58 Dextrose (Dextrose 50%) 25 ml Q30M PRN IV Hypoglycemia 12/30/19 16:45 03/29/20 16:44 Dextrose (Dextrose 50%) 50 ml Q30M PRN IV Hypoglycemia 12/30/19 16:45 03/29/20 16:44 Docusate Sodium (Colace) 100 mg BIDPRN PRN GT Constipation 12/30/19 17:00 01/29/20 16:44 Famotidine (Pepcid) 20 mg DAILY GT 12/31/19 09:00 03/30/20 08:59 01/04/20 08:57 Guaifenesin/ Dextromethorphan (Robitussin DM Syrup) 5 ml Q4H PRN GT For Cough 12/30/19 16:54 03/29/20 16:53 01/04/20 01:22 Heparin Sodium (Porcine) (Heparin 5000 units/ml) 5,000 units EVERY 8 HOURS SUBQ 12/30/19 22:00 02/13/20 21:59 01/04/20 05:39 Insulin Aspart (NovoLOG) Q6HR SUBQ 12/30/19 18:00 03/29/20 17:59 01/03/20 17:55 Levetiracetam (Keppra) 500 mg Q12HR GT 12/30/19 21:00 02/13/20 20:59 01/04/20 08:57 Levofloxacin (Levaquin) 750 mg DAILY GT 12/30/19 11:15 01/06/20 11:14 01/04/20 09:12 Magnesium Hydroxide (Mom) 30 ml DAILY GT 12/31/19 09:00 01/30/20 08:59 01/04/20 08:57 Memantine (Namenda) 10 mg DAILY GT 12/31/19 09:00 01/30/20 08:59 01/04/20 08:56 Ondansetron HCl (Zofran) 4 mg Q4H PRN GT Nausea & Vomiting 12/30/19 16:45 01/29/20 16:44 Sodium Phosphate (Fleet's Sodium Phosl Enema) 133 ml DAILYPRN PRN RECTAL constipation 12/30/19 16:45 01/29/20 16:44 Vancomycin HCl (Vanco pharmacy to dose) 1 ea DAILY PRN MISC Per rx protocol 12/31/19 12:15 01/30/20 12:14 Vancomycin HCl 1 gm/Sodium Chloride 275 ml @ 183.708 mls/hr Q8H IVPB 01/02/20 13:00 01/07/20 12:59 01/04/20 05:14 Zinc Sulfate (Zinc Sulfate) 220 mg DAILY GT 12/31/19 09:00 03/30/20 08:59 01/04/20 08:57 Assessment/Plan Assessment/Plan IMPRESSION: 1. Hypoxic respiratory failure. Improving; now on 2-4 L/min O2 2. COVID-19 pneumonia. 3. Hyperglycemia. 4. Hypertension. 5. Seizure disorder. 6. Dementia. 7. Fever; Tm 100.8 DISCUSSION: She has COVID-19 pneumonia. Abx per ID Continue oxygen, pulmonary hygiene, and fluids. Remains febrile; Tm 100.8 yesterday I will follow. Terrance Diaz M.D. Terrance Diaz MD Jan 04, 2020 10:05
--- NOTE | 2020-01-04 11:09 | Infectious Diseases Prog Note ---
Assessment/Plan Assessment/Plan IMPRESSION: Enterococcus sepsis Pneumonia, positive COVID19 COPD, Dementia, Diabetes mellitus, G-tube placement status Seizure disorder, Hypoxemia, Lactic acidosis. Penicillin allergy RECOMMENDATION: Continue Levaquin & Vancomycin We will f/u blood cultures. Will f/u Echocardiogram will do CT scan of abdomen & Pelvis instead of abdominal US Case was D/W radiologist, RN & primary team Subjective ROS Limited/Unobtainable: Yes Constitutional: Reports: fever, other - last night Allergies: Coded Allergies: IODINE (Verified Allergy, Unknown, 12/30/19) MORPHINE (Verified Allergy, Unknown, 12/30/19) PENICILLINS (Verified Allergy, Unknown, 12/30/19) SHELLFISH DERIVED (Verified Allergy, Unknown, 12/30/19) Objective Vital Signs Last 24 Hour Vital Signs Date Time Temp Pulse Resp B/P (MAP) Pulse Ox O2 Delivery O2 Flow Rate FiO2 01/04/20 09:00 Nasal Cannula 2.0 01/04/20 08:00 95 01/04/20 08:00 97.9 94 22 132/89 (103) 93 01/04/20 04:00 97.7 133 19 127/87 (100) 91 01/04/20 04:00 135 01/04/20 02:08 97.7 01/04/20 00:00 103 01/04/20 00:00 100.8 105 22 139/89 (106) 89 01/03/20 21:00 Nasal Cannula 2.0 01/03/20 20:00 99.0 107 19 148/88 (108) 88 01/03/20 20:00 106 01/03/20 16:00 97.7 109 22 128/77 (94) 94 01/03/20 15:41 106 01/03/20 11:55 99.0 104 22 151/87 (108) 94 01/03/20 11:42 104 Height (Feet): 5 Height (Inches): 7.00 Weight (Pounds): 200 HEENT: mucous membranes moist Respiratory/Chest: lungs clear Cardiovascular: normal rate Abdomen: soft, non tender, other - GT feeding Extremities: no edema Neurologic/Psychiatric: aphasia Laboratory Tests Test 01/03/20 20:15 01/04/20 05:52 Vancomycin Level Trough 14.0 ug/mL (5.0-12.0) H White Blood Count 10.9 K/UL (4.8-10.8) H Red Blood Count 4.65 M/UL (4.20-5.40) Hemoglobin 12.1 G/DL (12.0-16.0) Hematocrit 39.4 % (37.0-47.0) Mean Corpuscular Volume 85 FL (80-99) Mean Corpuscular Hemoglobin 26.1 PG (27.0-31.0) L Mean Corpuscular Hemoglobin Concent 30.8 G/DL (32.0-36.0) L Red Cell Distribution Width 14.4 % (11.6-14.8) Platelet Count 357 K/UL (150-450) Mean Platelet Volume 9.0 FL (6.5-10.1) Neutrophils (%) (Auto) 68.3 % (45.0-75.0) Lymphocytes (%) (Auto) 18.1 % (20.0-45.0) L Monocytes (%) (Auto) 11.6 % (1.0-10.0) H Eosinophils (%) (Auto) 0.9 % (0.0-3.0) Basophils (%) (Auto) 1.1 % (0.0-2.0) Sodium Level 138 MMOL/L (136-145) Potassium Level 4.3 MMOL/L (3.5-5.1) Chloride Level 102 MMOL/L (98-107) Carbon Dioxide Level 28 MMOL/L (21-32) Anion Gap 8 mmol/L (5-15) Blood Urea Nitrogen 10 mg/dL (7-18) Creatinine 0.5 MG/DL (0.55-1.30) L Estimat Glomerular Filtration Rate > 60 mL/min (>60) Glucose Level 128 MG/DL (74-106) H Calcium Level 9.3 MG/DL (8.5-10.1) Current Medications Medications (Trade) Dose Ordered Sig/Bola Route PRN Reason Start Time Stop Time Status Last Admin Dose Admin Acetaminophen (Tylenol) 650 mg Q4H PRN GT Mild Pain / T>100.4 01/04/20 06:45 02/03/20 06:44 Acetaminophen (Tylenol) 650 mg Q6H PRN RECTAL Mild Pain/fever 01/04/20 06:45 01/29/20 15:29 Ascorbic Acid (Vitamin C) 1,000 mg Q12HR GT 12/30/19 21:00 01/29/20 20:59 01/04/20 08:57 Bisacodyl (Dulcolax) 10 mg DAILYPRN PRN RECTAL CONSTIPATION 12/30/19 17:00 03/29/20 16:44 Clonidine HCl (Catapres Tab) 0.1 mg Q6H PRN GT sbp>160 12/30/19 16:45 03/29/20 16:44 01/02/20 09:57 Clotrimazole (Lotrimin) 1 applic THREE TIMES A DAY TOPIC 12/31/19 10:00 03/30/20 09:59 01/04/20 08:58 Dextrose (Dextrose 50%) 25 ml Q30M PRN IV Hypoglycemia 12/30/19 16:45 03/29/20 16:44 Dextrose (Dextrose 50%) 50 ml Q30M PRN IV Hypoglycemia 12/30/19 16:45 03/29/20 16:44 Docusate Sodium (Colace) 100 mg BIDPRN PRN GT Constipation 12/30/19 17:00 01/29/20 16:44 Famotidine (Pepcid) 20 mg DAILY GT 12/31/19 09:00 03/30/20 08:59 01/04/20 08:57 Guaifenesin/ Dextromethorphan (Robitussin DM Syrup) 5 ml Q4H PRN GT For Cough 12/30/19 16:54 03/29/20 16:53 01/04/20 01:22 Heparin Sodium (Porcine) (Heparin 5000 units/ml) 5,000 units EVERY 8 HOURS SUBQ 12/30/19 22:00 02/13/20 21:59 01/04/20 05:39 Insulin Aspart (NovoLOG) Q6HR SUBQ 12/30/19 18:00 03/29/20 17:59 01/03/20 17:55 Levetiracetam (Keppra) 500 mg Q12HR GT 12/30/19 21:00 02/13/20 20:59 01/04/20 08:57 Levofloxacin (Levaquin) 750 mg DAILY GT 12/30/19 11:15 01/06/20 11:14 01/04/20 09:12 Magnesium Hydroxide (Mom) 30 ml DAILY GT 12/31/19 09:00 01/30/20 08:59 01/04/20 08:57 Memantine (Namenda) 10 mg DAILY GT 12/31/19 09:00 01/30/20 08:59 01/04/20 08:56 Ondansetron HCl (Zofran) 4 mg Q4H PRN GT Nausea & Vomiting 12/30/19 16:45 01/29/20 16:44 Sodium Phosphate (Fleet's Sodium Phosl Enema) 133 ml DAILYPRN PRN RECTAL constipation 12/30/19 16:45 01/29/20 16:44 Vancomycin HCl (Vanco pharmacy to dose) 1 ea DAILY PRN MISC Per rx protocol 12/31/19 12:15 01/30/20 12:14 Vancomycin HCl 1 gm/Sodium Chloride 275 ml @ 183.708 mls/hr Q8H IVPB 01/02/20 13:00 01/07/20 12:59 01/04/20 05:14 Zinc Sulfate (Zinc Sulfate) 220 mg DAILY GT 12/31/19 09:00 03/30/20 08:59 01/04/20 08:57 Mamadou Ramos MD Jan 04, 2020 11:09
[2020-01-04 12:00] VITALS: BP 125/85
--- NOTE | 2020-01-04 13:19 | Cardiac Electrophysiology PN ---
Subjective Subjective [id number] Objective Last 24 Hour Vital Signs Date Time Temp Pulse Resp B/P (MAP) Pulse Ox O2 Delivery O2 Flow Rate FiO2 01/04/20 12:00 96 01/04/20 12:00 99.5 93 20 125/85 (98) 94 01/04/20 09:00 Nasal Cannula 2.0 01/04/20 08:00 95 01/04/20 08:00 97.9 94 22 132/89 (103) 93 01/04/20 04:00 97.7 133 19 127/87 (100) 91 01/04/20 04:00 135 01/04/20 02:08 97.7 01/04/20 00:00 103 01/04/20 00:00 100.8 105 22 139/89 (106) 89 01/03/20 21:00 Nasal Cannula 2.0 01/03/20 20:00 99.0 107 19 148/88 (108) 88 01/03/20 20:00 106 01/03/20 16:00 97.7 109 22 128/77 (94) 94 01/03/20 15:41 106 Intake and Output 01/03/20 01/04/20 19:00 07:00 Intake Total 1135.000 ml Output Total 500 ml 1100 ml Balance 635.000 ml -1100 ml Free Water 200 ml IV Total 275.000 ml Tube Feeding 660 ml Output Urine Total 500 ml 1100 ml # Bowel Movements 1 Laboratory Tests Test 01/03/20 20:15 01/04/20 05:52 Vancomycin Level Trough 14.0 ug/mL (5.0-12.0) H White Blood Count 10.9 K/UL (4.8-10.8) H Red Blood Count 4.65 M/UL (4.20-5.40) Hemoglobin 12.1 G/DL (12.0-16.0) Hematocrit 39.4 % (37.0-47.0) Mean Corpuscular Volume 85 FL (80-99) Mean Corpuscular Hemoglobin 26.1 PG (27.0-31.0) L Mean Corpuscular Hemoglobin Concent 30.8 G/DL (32.0-36.0) L Red Cell Distribution Width 14.4 % (11.6-14.8) Platelet Count 357 K/UL (150-450) Mean Platelet Volume 9.0 FL (6.5-10.1) Neutrophils (%) (Auto) 68.3 % (45.0-75.0) Lymphocytes (%) (Auto) 18.1 % (20.0-45.0) L Monocytes (%) (Auto) 11.6 % (1.0-10.0) H Eosinophils (%) (Auto) 0.9 % (0.0-3.0) Basophils (%) (Auto) 1.1 % (0.0-2.0) Sodium Level 138 MMOL/L (136-145) Potassium Level 4.3 MMOL/L (3.5-5.1) Chloride Level 102 MMOL/L (98-107) Carbon Dioxide Level 28 MMOL/L (21-32) Anion Gap 8 mmol/L (5-15) Blood Urea Nitrogen 10 mg/dL (7-18) Creatinine 0.5 MG/DL (0.55-1.30) L Estimat Glomerular Filtration Rate > 60 mL/min (>60) Glucose Level 128 MG/DL (74-106) H Calcium Level 9.3 MG/DL (8.5-10.1) Carl Cornejo MD Jan 04, 2020 13:19
[2020-01-04 16:00] VITALS: BP 125/85
--- NOTE | 2020-01-04 17:36 | General Progress Note ---
Assessment/Plan Problem List: (1) Respiratory distress ICD Codes: R06.03 - Acute respiratory distress SNOMED: 589543222 (2) Pneumonia due to COVID-19 virus ICD Codes: U07.1 - COVID-19; J12.89 - Other viral pneumonia SNOMED: 909206692, 705884436 Status: progressing Assessment/Plan: positive covid pna pnaintermittent fever positive entercoccous sepsis without source/etiology tachycardia consulted dr manjeet banegas didnt clear the pt due to above Subjective ROS Limited/Unobtainable: Yes Allergies: Coded Allergies: IODINE (Verified Allergy, Unknown, 12/30/19) MORPHINE (Verified Allergy, Unknown, 12/30/19) PENICILLINS (Verified Allergy, Unknown, 12/30/19) SHELLFISH DERIVED (Verified Allergy, Unknown, 12/30/19) Objective Last 24 Hour Vital Signs Date Time Temp Pulse Resp B/P (MAP) Pulse Ox O2 Delivery O2 Flow Rate FiO2 01/04/20 16:00 99.5 93 20 125/85 (98) 94 01/04/20 12:00 96 01/04/20 12:00 99.5 93 20 125/85 (98) 94 01/04/20 09:00 Nasal Cannula 2.0 01/04/20 08:00 95 01/04/20 08:00 97.9 94 22 132/89 (103) 93 01/04/20 04:00 97.7 133 19 127/87 (100) 91 01/04/20 04:00 135 01/04/20 02:08 97.7 01/04/20 00:00 103 01/04/20 00:00 100.8 105 22 139/89 (106) 89 01/03/20 21:00 Nasal Cannula 2.0 01/03/20 20:00 99.0 107 19 148/88 (108) 88 01/03/20 20:00 106 Intake and Output 01/03/20 01/04/20 19:00 07:00 Intake Total 1135.000 ml Output Total 500 ml 1100 ml Balance 635.000 ml -1100 ml Free Water 200 ml IV Total 275.000 ml Tube Feeding 660 ml Output Urine Total 500 ml 1100 ml # Bowel Movements 1 Laboratory Tests 01/03/20 20:15: Vancomycin Level Trough 14.0H 01/04/20 05:52: White Blood Count 10.9H, Red Blood Count 4.65, Hemoglobin 12.1, Hematocrit 39.4 , Mean Corpuscular Volume 85, Mean Corpuscular Hemoglobin 26.1L, Mean Corpuscular Hemoglobin Concent 30.8L, Red Cell Distribution Width 14.4, Platelet Count 357, Mean Platelet Volume 9.0, Neutrophils (%) (Auto) 68.3, Lymphocytes (%) (Auto) 18.1L, Monocytes (%) (Auto) 11.6H, Eosinophils (%) (Auto ) 0.9, Basophils (%) (Auto) 1.1, Sodium Level 138, Potassium Level 4.3, Chloride Level 102, Carbon Dioxide Level 28, Anion Gap 8, Blood Urea Nitrogen 10 , Creatinine 0.5L, Estimat Glomerular Filtration Rate > 60, Glucose Level 128H, Calcium Level 9.3 Height (Feet): 5 Height (Inches): 7.00 Weight (Pounds): 200 Dinah Whitney MD Jan 04, 2020 17:36
--- NOTE | 2020-01-04 18:30 | Consultation ---
DATE OF CONSULTATION: 01/04/2020 CARDIOLOGY CONSULTATION CONSULTING PHYSICIAN: Carl Cornejo MD. REFERRING PHYSICIAN: Dinah Whitney MD. REASON FOR CONSULTATION: Bacteremia, rule out endocarditis. HISTORY OF PRESENT ILLNESS: Patient is a 69-year-old assisted resident, who was confirmed COVID-19 positive. Patient was hypoxic, on nasal cannula only at 80%. Patient was admitted to the hospital. Patient has dementia and has dysphagia status post G-tube placement as well as seizure disorder. Patient was also found to have Enterococcus bacteremia. Cardiology consultation was obtained to rule out endocarditis. REVIEW OF SYSTEMS: Negative other than what was mentioned in history of present illness. Review of systems cannot be obtained given patient has advanced dementia and nonverbal. PAST MEDICAL HISTORY: As mentioned above. FAMILY HISTORY: Noncontributory. SOCIAL HISTORY: She is a assisted resident. Does not smoke or drink alcohol. PHYSICAL EXAMINATION: VITAL SIGNS: Show blood pressure of 124/85, pulse is 93, respirations 18, temperature 100.8. HEAD AND NECK: Showed no JVD. LUNGS: Clear. CARDIOVASCULAR: Shows regular S1 and S2 with no gallop. ABDOMEN: Status post G-tube. EXTREMITIES: 1+ pitting edema. LABORATORY AND DIAGNOSTIC DATA: Labs show white count of 11, hemoglobin 12.4, hematocrit 39, and platelet count of 357. Sodium 138, potassium 4.3, BUN of 10, creatinine 0.5, and glucose of 128. Vanco level is 14. ASSESSMENT AND PLAN: 1. Bacteremia. Her echocardiogram showed ejection fraction of 55 to 60%. No evidence of vegetation based an echo on 12/30/2019. Patient may need a transesophageal echocardiogram for further evaluation; however, CT of the abdomen and pelvis is pending. If that is unrevealing, then she may need a transesophageal echocardiogram. 2. COVID positive pneumonia. 3. Dysphagia, status post PEG placement. 4. Diabetes. 5. Seizures. She is on Keppra. Thank you very much for allowing me to participate in the care of this patient. Please do not hesitate to contact me for any questions regarding my evaluation. Carl Cornejo M.D. DR: HERB JOB#: [id number] CC:
[2020-01-04 20:00] VITALS: BP 131/80
[2020-01-05] VITALS: BP 148/74
[2020-01-05 04:00] VITALS: BP 159/86
[2020-01-05] MEDS: Vancomycin 1 GM in NS 275 ML IVPB SCH ×3 (04:52→21:09)
[2020-01-05] MEDS: Heparin 5000 units/ml inj SUBQ SCH ×3 (05:28→21:11)
[2020-01-05] MEDS: NovoLOG Insulin Flexpen SUBQ SCH ×3 (06:35→17:07)
[2020-01-05 07:22] LABS: BASOPHILS % (AUTO) 1.2 % (0.0-2.0); EOSINOPHILS % (AUTO) 0.6 % (0.0-3.0); HEMATOCRIT 40.9 % (37.0-47.0); HEMOGLOBIN 12.4 G/DL (12.0-16.0); LYMPHOCYTES % (AUTO) 20.4 % (20.0-45.0); MEAN CORPUSCULAR VOLUME 85 FL (80-99); MONOCYTES % (AUTO) 8.8 % (1.0-10.0); NEUTROPHILS % (AUTO) 69.1 % (45.0-75.0); PLATELET COUNT 344 K/UL (150-450); RED CELL DISTRIBUTION WIDTH 14.4 % (11.6-14.8); WHITE BLOOD COUNT 9.7 K/UL (4.8-10.8)
[2020-01-05 07:49] LABS: ANION GAP 5 mmol/L (5-15); BLOOD UREA NITROGEN 10 mg/dL (7-18); CALCIUM 9.2 MG/DL (8.5-10.1); CARBON DIOXIDE 30 MMOL/L (21-32); CHLORIDE 104 MMOL/L (98-107); CREATININE 0.5 MG/DL (0.55-1.30); POTASSIUM 4.1 MMOL/L (3.5-5.1); SODIUM 139 MMOL/L (136-145)
[2020-01-05 08:00] VITALS: BP 132/84
[2020-01-05] MEDS: Ascorbic Acid 500mg tab GT SCH ×2 (08:38→21:09)
[2020-01-05] MEDS: Memantine 10mg tab GT SCH (08:38)
[2020-01-05] MEDS: Levofloxacin 750mg tab GT SCH (08:38)
[2020-01-05] MEDS: levETIRAcetam 500mg/5ml Liquid GT SCH ×2 (08:39→21:09)
[2020-01-05] MEDS: Milk of Magnesia 30ml Ud GT SCH (08:39)
[2020-01-05] MEDS: Zinc Sulfate 220mg GT SCH (08:39)
--- NOTE | 2020-01-05 09:23 | General Progress Note ---
Assessment/Plan Status: progressing Assessment/Plan: 1. History of dementia. 2. COPD. 3. Dysphagia requiring G-tube. 4. GERD. 5. Recent COVID positive pneumonia. GT has been changed GTF GT care will fu Subjective ROS Limited/Unobtainable: No Allergies: Coded Allergies: IODINE (Verified Allergy, Unknown, 12/30/19) MORPHINE (Verified Allergy, Unknown, 12/30/19) PENICILLINS (Verified Allergy, Unknown, 12/30/19) SHELLFISH DERIVED (Verified Allergy, Unknown, 12/30/19) Objective Last 24 Hour Vital Signs Date Time Temp Pulse Resp B/P (MAP) Pulse Ox O2 Delivery O2 Flow Rate FiO2 01/05/20 09:00 Nasal Cannula 2.0 01/05/20 08:00 104 01/05/20 08:00 97.9 104 20 132/84 (100) 96 01/05/20 04:00 97.5 94 20 159/86 (110) 100 01/05/20 04:00 101 01/05/20 00:00 87 01/05/20 00:00 97.5 97 19 148/74 (98) 92 01/04/20 21:00 Nasal Cannula 2.0 01/04/20 20:00 98.1 99 19 131/80 (97) 95 01/04/20 20:00 99 01/04/20 16:00 90 01/04/20 16:00 99.5 93 20 125/85 (98) 94 01/04/20 12:00 96 01/04/20 12:00 99.5 93 20 125/85 (98) 94 Intake and Output 01/04/20 01/05/20 19:00 07:00 Output Total 700 ml 1525 ml Balance -700 ml -1525 ml Output Urine Total 700 ml 1525 ml # Bowel Movements 1 1 Laboratory Tests 01/05/20 06:01: White Blood Count 9.7, Red Blood Count 4.80, Hemoglobin 12.4, Hematocrit 40.9, Mean Corpuscular Volume 85, Mean Corpuscular Hemoglobin 25.9L, Mean Corpuscular Hemoglobin Concent 30.4L, Red Cell Distribution Width 14.4, Platelet Count 344, Mean Platelet Volume 8.2, Neutrophils (%) (Auto) 69.1, Lymphocytes (%) (Auto) 20.4, Monocytes (%) (Auto) 8.8, Eosinophils (%) (Auto) 0.6, Basophils (%) (Auto ) 1.2, Sodium Level 139, Potassium Level 4.1, Chloride Level 104, Carbon Dioxide Level 30, Anion Gap 5, Blood Urea Nitrogen 10, Creatinine 0.5L, Estimat Glomerular Filtration Rate > 60, Glucose Level 161H, Calcium Level 9.2 Height (Feet): 5 Height (Inches): 7.00 Weight (Pounds): 200 General Appearance: no apparent distress EENT: normal ENT inspection Neck: supple Cardiovascular: normal rate Respiratory/Chest: decreased breath sounds Abdomen: normal bowel sounds, non tender, soft Extremities: non-tender Dennis Chester MD Jan 05, 2020 09:22
--- NOTE | 2020-01-05 10:10 | Cardiac Electrophysiology PN ---
Assessment/Plan Assessment/Plan 1. Bacteremia. Her echocardiogram showed ejection fraction of 55 to 60%. No evidence of vegetation based an echo on 12/30/2019. Patient may need a transesophageal echocardiogram for further evaluation; however, CT of the abdomen and pelvis is pending. If that is unrevealing, then she may need a transesophageal echocardiogram. 2. COVID positive pneumonia. 3. Dysphagia, status post PEG placement. 4. Diabetes. 5. Seizures. She is on Keppra. EMILY RN and Dr. Ramos Subjective Subjective In SR in covid isolation. Sinus tach 100s. On 2 liter NC Objective Last 24 Hour Vital Signs Date Time Temp Pulse Resp B/P (MAP) Pulse Ox O2 Delivery O2 Flow Rate FiO2 01/05/20 09:00 Nasal Cannula 2.0 01/05/20 08:00 104 01/05/20 08:00 97.9 104 20 132/84 (100) 96 01/05/20 04:00 97.5 94 20 159/86 (110) 100 01/05/20 04:00 101 01/05/20 00:00 87 01/05/20 00:00 97.5 97 19 148/74 (98) 92 01/04/20 21:00 Nasal Cannula 2.0 01/04/20 20:00 98.1 99 19 131/80 (97) 95 01/04/20 20:00 99 01/04/20 16:00 90 01/04/20 16:00 99.5 93 20 125/85 (98) 94 01/04/20 12:00 96 01/04/20 12:00 99.5 93 20 125/85 (98) 94 Intake and Output 01/04/20 01/05/20 19:00 07:00 Output Total 700 ml 1525 ml Balance -700 ml -1525 ml Output Urine Total 700 ml 1525 ml # Bowel Movements 1 1 Laboratory Tests Test 01/05/20 06:01 White Blood Count 9.7 K/UL (4.8-10.8) Red Blood Count 4.80 M/UL (4.20-5.40) Hemoglobin 12.4 G/DL (12.0-16.0) Hematocrit 40.9 % (37.0-47.0) Mean Corpuscular Volume 85 FL (80-99) Mean Corpuscular Hemoglobin 25.9 PG (27.0-31.0) L Mean Corpuscular Hemoglobin Concent 30.4 G/DL (32.0-36.0) L Red Cell Distribution Width 14.4 % (11.6-14.8) Platelet Count 344 K/UL (150-450) Mean Platelet Volume 8.2 FL (6.5-10.1) Neutrophils (%) (Auto) 69.1 % (45.0-75.0) Lymphocytes (%) (Auto) 20.4 % (20.0-45.0) Monocytes (%) (Auto) 8.8 % (1.0-10.0) Eosinophils (%) (Auto) 0.6 % (0.0-3.0) Basophils (%) (Auto) 1.2 % (0.0-2.0) Sodium Level 139 MMOL/L (136-145) Potassium Level 4.1 MMOL/L (3.5-5.1) Chloride Level 104 MMOL/L (98-107) Carbon Dioxide Level 30 MMOL/L (21-32) Anion Gap 5 mmol/L (5-15) Blood Urea Nitrogen 10 mg/dL (7-18) Creatinine 0.5 MG/DL (0.55-1.30) L Estimat Glomerular Filtration Rate > 60 mL/min (>60) Glucose Level 161 MG/DL (74-106) H Calcium Level 9.2 MG/DL (8.5-10.1) Microbiology Date/Time Source Procedure Growth Status 01/03/20 20:15 Blood Blood Culture - Preliminary NO GROWTH AFTER 24 HOURS Resulted 01/03/20 20:00 Blood Blood Culture - Preliminary NO GROWTH AFTER 24 HOURS Resulted Objective HEAD AND NECK: No JVD. LUNGS: Clear. CARDIOVASCULAR: Regular S1 and S2 with no gallop. ABDOMEN: Status post G-tube. EXTREMITIES: 1+ pitting edema. Carl Cornejo MD Jan 05, 2020 10:10
--- NOTE | 2020-01-05 10:18 | Infectious Diseases Prog Note ---
Assessment/Plan Assessment/Plan IMPRESSION: Enterococcus sepsis Pneumonia, positive COVID19 COPD, Dementia, Diabetes mellitus, G-tube placement status Seizure disorder, Hypoxemia, Lactic acidosis. Penicillin allergy RECOMMENDATION: Continue Levaquin & Vancomycin We will f/u blood cultures. CT scan of abdomen & Pelvis pending Case was D/W radiology & RN Subjective ROS Limited/Unobtainable: Yes Constitutional: Denies: fever Allergies: Coded Allergies: IODINE (Verified Allergy, Unknown, 12/30/19) MORPHINE (Verified Allergy, Unknown, 12/30/19) PENICILLINS (Verified Allergy, Unknown, 12/30/19) SHELLFISH DERIVED (Verified Allergy, Unknown, 12/30/19) Objective Vital Signs Last 24 Hour Vital Signs Date Time Temp Pulse Resp B/P (MAP) Pulse Ox O2 Delivery O2 Flow Rate FiO2 01/05/20 09:00 Nasal Cannula 2.0 01/05/20 08:00 104 01/05/20 08:00 97.9 104 20 132/84 (100) 96 01/05/20 04:00 97.5 94 20 159/86 (110) 100 01/05/20 04:00 101 01/05/20 00:00 87 01/05/20 00:00 97.5 97 19 148/74 (98) 92 01/04/20 21:00 Nasal Cannula 2.0 01/04/20 20:00 98.1 99 19 131/80 (97) 95 01/04/20 20:00 99 01/04/20 16:00 90 01/04/20 16:00 99.5 93 20 125/85 (98) 94 01/04/20 12:00 96 01/04/20 12:00 99.5 93 20 125/85 (98) 94 Height (Feet): 5 Height (Inches): 7.00 Weight (Pounds): 200 HEENT: mucous membranes moist Respiratory/Chest: other - oxygen by nasal cannula Cardiovascular: tachycardia Abdomen: soft, non tender, other - GT feeding Extremities: no edema Neurologic/Psychiatric: aphasia Microbiology Date/Time Source Procedure Growth Status 01/03/20 20:15 Blood Blood Culture - Preliminary NO GROWTH AFTER 24 HOURS Resulted 01/03/20 20:00 Blood Blood Culture - Preliminary NO GROWTH AFTER 24 HOURS Resulted Laboratory Tests Test 01/05/20 06:01 White Blood Count 9.7 K/UL (4.8-10.8) Red Blood Count 4.80 M/UL (4.20-5.40) Hemoglobin 12.4 G/DL (12.0-16.0) Hematocrit 40.9 % (37.0-47.0) Mean Corpuscular Volume 85 FL (80-99) Mean Corpuscular Hemoglobin 25.9 PG (27.0-31.0) L Mean Corpuscular Hemoglobin Concent 30.4 G/DL (32.0-36.0) L Red Cell Distribution Width 14.4 % (11.6-14.8) Platelet Count 344 K/UL (150-450) Mean Platelet Volume 8.2 FL (6.5-10.1) Neutrophils (%) (Auto) 69.1 % (45.0-75.0) Lymphocytes (%) (Auto) 20.4 % (20.0-45.0) Monocytes (%) (Auto) 8.8 % (1.0-10.0) Eosinophils (%) (Auto) 0.6 % (0.0-3.0) Basophils (%) (Auto) 1.2 % (0.0-2.0) Sodium Level 139 MMOL/L (136-145) Potassium Level 4.1 MMOL/L (3.5-5.1) Chloride Level 104 MMOL/L (98-107) Carbon Dioxide Level 30 MMOL/L (21-32) Anion Gap 5 mmol/L (5-15) Blood Urea Nitrogen 10 mg/dL (7-18) Creatinine 0.5 MG/DL (0.55-1.30) L Estimat Glomerular Filtration Rate > 60 mL/min (>60) Glucose Level 161 MG/DL (74-106) H Calcium Level 9.2 MG/DL (8.5-10.1) Current Medications Medications (Trade) Dose Ordered Sig/Bola Route PRN Reason Start Time Stop Time Status Last Admin Dose Admin Acetaminophen (Tylenol) 650 mg Q4H PRN GT Mild Pain / T>100.4 01/04/20 06:45 02/03/20 06:44 Acetaminophen (Tylenol) 650 mg Q6H PRN RECTAL Mild Pain/fever 01/04/20 06:45 01/29/20 15:29 Ascorbic Acid (Vitamin C) 1,000 mg Q12HR GT 12/30/19 21:00 01/29/20 20:59 01/05/20 08:38 Barium Sulfate (Readi-Cat 2) 450 ml NOW PRN ORAL Radiology Procedure 01/04/20 11:15 01/06/20 11:09 Bisacodyl (Dulcolax) 10 mg DAILYPRN PRN RECTAL CONSTIPATION 12/30/19 17:00 03/29/20 16:44 Clonidine HCl (Catapres Tab) 0.1 mg Q6H PRN GT sbp>160 12/30/19 16:45 03/29/20 16:44 01/02/20 09:57 Clotrimazole (Lotrimin) 1 applic THREE TIMES A DAY TOPIC 12/31/19 10:00 03/30/20 09:59 01/05/20 08:40 Dextrose (Dextrose 50%) 25 ml Q30M PRN IV Hypoglycemia 12/30/19 16:45 03/29/20 16:44 Dextrose (Dextrose 50%) 50 ml Q30M PRN IV Hypoglycemia 12/30/19 16:45 03/29/20 16:44 Docusate Sodium (Colace) 100 mg BIDPRN PRN GT Constipation 12/30/19 17:00 01/29/20 16:44 Famotidine (Pepcid) 20 mg DAILY GT 12/31/19 09:00 03/30/20 08:59 01/05/20 08:38 Guaifenesin/ Dextromethorphan (Robitussin DM Syrup) 5 ml Q4H PRN GT For Cough 12/30/19 16:54 03/29/20 16:53 01/04/20 01:22 Heparin Sodium (Porcine) (Heparin 5000 units/ml) 5,000 units EVERY 8 HOURS SUBQ 12/30/19 22:00 02/13/20 21:59 01/05/20 05:28 Insulin Aspart (NovoLOG) Q6HR SUBQ 12/30/19 18:00 03/29/20 17:59 01/05/20 06:35 Levetiracetam (Keppra) 500 mg Q12HR GT 12/30/19 21:00 02/13/20 20:59 01/05/20 08:39 Levofloxacin (Levaquin) 750 mg DAILY GT 12/30/19 11:15 01/06/20 11:14 01/05/20 08:38 Magnesium Hydroxide (Mom) 30 ml DAILY GT 12/31/19 09:00 01/30/20 08:59 01/05/20 08:39 Memantine (Namenda) 10 mg DAILY GT 12/31/19 09:00 01/30/20 08:59 01/05/20 08:38 Ondansetron HCl (Zofran) 4 mg Q4H PRN GT Nausea & Vomiting 12/30/19 16:45 01/29/20 16:44 Sodium Phosphate (Fleet's Sodium Phosl Enema) 133 ml DAILYPRN PRN RECTAL constipation 12/30/19 16:45 01/29/20 16:44 Vancomycin HCl (Vanco pharmacy to dose) 1 ea DAILY PRN MISC Per rx protocol 12/31/19 12:15 01/30/20 12:14 Vancomycin HCl 1 gm/Sodium Chloride 275 ml @ 183.708 mls/hr Q8H IVPB 01/02/20 13:00 01/07/20 12:59 01/05/20 04:52 Zinc Sulfate (Zinc Sulfate) 220 mg DAILY GT 12/31/19 09:00 03/30/20 08:59 01/05/20 08:39 Mamadou Ramos MD Jan 05, 2020 10:18
--- NOTE | 2020-01-05 10:57 | Pulmonology Progress Note ---
Subjective ROS Limited/Unobtainable: Yes Interval Events: None new Constitutional: Denies: fever HEENT: Repors: no symptoms Respiratory: Reports: no symptoms Cardiovascular: Reports: no symptoms Gastrointestinal/Abdominal: Reports: no symptoms Allergies: Coded Allergies: IODINE (Verified Allergy, Unknown, 12/30/19) MORPHINE (Verified Allergy, Unknown, 12/30/19) PENICILLINS (Verified Allergy, Unknown, 12/30/19) SHELLFISH DERIVED (Verified Allergy, Unknown, 12/30/19) Objective Last 24 Hour Vital Signs Date Time Temp Pulse Resp B/P (MAP) Pulse Ox O2 Delivery O2 Flow Rate FiO2 01/05/20 09:00 Nasal Cannula 2.0 01/05/20 08:00 104 01/05/20 08:00 97.9 104 20 132/84 (100) 96 01/05/20 04:00 97.5 94 20 159/86 (110) 100 01/05/20 04:00 101 01/05/20 00:00 87 01/05/20 00:00 97.5 97 19 148/74 (98) 92 01/04/20 21:00 Nasal Cannula 2.0 01/04/20 20:00 98.1 99 19 131/80 (97) 95 01/04/20 20:00 99 01/04/20 16:00 90 01/04/20 16:00 99.5 93 20 125/85 (98) 94 01/04/20 12:00 96 01/04/20 12:00 99.5 93 20 125/85 (98) 94 Intake and Output 01/04/20 01/05/20 19:00 07:00 Output Total 700 ml 1525 ml Balance -700 ml -1525 ml Output Urine Total 700 ml 1525 ml # Bowel Movements 1 1 General Appearance: no acute distress HEENT: normocephalic Respiratory: chest wall non-tender, decreased breath sounds Cardiovascular: normal peripheral pulses, normal rate Abdomen: normal bowel sounds Microbiology Date/Time Source Procedure Growth Status 01/03/20 20:15 Blood Blood Culture - Preliminary NO GROWTH AFTER 24 HOURS Resulted 01/03/20 20:00 Blood Blood Culture - Preliminary NO GROWTH AFTER 24 HOURS Resulted Laboratory Tests 01/05/20 06:01: White Blood Count 9.7, Red Blood Count 4.80, Hemoglobin 12.4, Hematocrit 40.9, Mean Corpuscular Volume 85, Mean Corpuscular Hemoglobin 25.9L, Mean Corpuscular Hemoglobin Concent 30.4L, Red Cell Distribution Width 14.4, Platelet Count 344, Mean Platelet Volume 8.2, Neutrophils (%) (Auto) 69.1, Lymphocytes (%) (Auto) 20.4, Monocytes (%) (Auto) 8.8, Eosinophils (%) (Auto) 0.6, Basophils (%) (Auto ) 1.2, Sodium Level 139, Potassium Level 4.1, Chloride Level 104, Carbon Dioxide Level 30, Anion Gap 5, Blood Urea Nitrogen 10, Creatinine 0.5L, Estimat Glomerular Filtration Rate > 60, Glucose Level 161H, Calcium Level 9.2 Current Medications Medications (Trade) Dose Ordered Sig/Bola Route PRN Reason Start Time Stop Time Status Last Admin Dose Admin Acetaminophen (Tylenol) 650 mg Q4H PRN GT Mild Pain / T>100.4 01/04/20 06:45 02/03/20 06:44 Acetaminophen (Tylenol) 650 mg Q6H PRN RECTAL Mild Pain/fever 01/04/20 06:45 01/29/20 15:29 Ascorbic Acid (Vitamin C) 1,000 mg Q12HR GT 12/30/19 21:00 01/29/20 20:59 01/05/20 08:38 Barium Sulfate (Readi-Cat 2) 450 ml NOW PRN ORAL Radiology Procedure 01/04/20 11:15 01/06/20 11:09 Bisacodyl (Dulcolax) 10 mg DAILYPRN PRN RECTAL CONSTIPATION 12/30/19 17:00 03/29/20 16:44 Clonidine HCl (Catapres Tab) 0.1 mg Q6H PRN GT sbp>160 12/30/19 16:45 03/29/20 16:44 01/02/20 09:57 Clotrimazole (Lotrimin) 1 applic THREE TIMES A DAY TOPIC 12/31/19 10:00 03/30/20 09:59 01/05/20 08:40 Dextrose (Dextrose 50%) 25 ml Q30M PRN IV Hypoglycemia 12/30/19 16:45 03/29/20 16:44 Dextrose (Dextrose 50%) 50 ml Q30M PRN IV Hypoglycemia 12/30/19 16:45 03/29/20 16:44 Docusate Sodium (Colace) 100 mg BIDPRN PRN GT Constipation 12/30/19 17:00 01/29/20 16:44 Famotidine (Pepcid) 20 mg DAILY GT 12/31/19 09:00 03/30/20 08:59 01/05/20 08:38 Guaifenesin/ Dextromethorphan (Robitussin DM Syrup) 5 ml Q4H PRN GT For Cough 12/30/19 16:54 03/29/20 16:53 01/04/20 01:22 Heparin Sodium (Porcine) (Heparin 5000 units/ml) 5,000 units EVERY 8 HOURS SUBQ 12/30/19 22:00 02/13/20 21:59 01/05/20 05:28 Insulin Aspart (NovoLOG) Q6HR SUBQ 12/30/19 18:00 03/29/20 17:59 01/05/20 06:35 Levetiracetam (Keppra) 500 mg Q12HR GT 12/30/19 21:00 02/13/20 20:59 01/05/20 08:39 Levofloxacin (Levaquin) 750 mg DAILY GT 12/30/19 11:15 01/06/20 11:14 01/05/20 08:38 Magnesium Hydroxide (Mom) 30 ml DAILY GT 12/31/19 09:00 01/30/20 08:59 01/05/20 08:39 Memantine (Namenda) 10 mg DAILY GT 12/31/19 09:00 01/30/20 08:59 01/05/20 08:38 Ondansetron HCl (Zofran) 4 mg Q4H PRN GT Nausea & Vomiting 12/30/19 16:45 01/29/20 16:44 Sodium Phosphate (Fleet's Sodium Phosl Enema) 133 ml DAILYPRN PRN RECTAL constipation 12/30/19 16:45 01/29/20 16:44 Vancomycin HCl (Vanco pharmacy to dose) 1 ea DAILY PRN MISC Per rx protocol 12/31/19 12:15 01/30/20 12:14 Vancomycin HCl 1 gm/Sodium Chloride 275 ml @ 183.708 mls/hr Q8H IVPB 01/02/20 13:00 01/07/20 12:59 01/05/20 04:52 Zinc Sulfate (Zinc Sulfate) 220 mg DAILY GT 12/31/19 09:00 03/30/20 08:59 01/05/20 08:39 Assessment/Plan Assessment/Plan IMPRESSION: 1. Hypoxic respiratory failure. Improving; now on 2-4 L/min O2 2. COVID-19 pneumonia. 3. Hyperglycemia. 4. Hypertension. 5. Seizure disorder. 6. Dementia. 7. Fever; resolved DISCUSSION: She has COVID-19 pneumonia. Abx per ID Continue oxygen, pulmonary hygiene, and fluids. Initiate dc planning Ramon Wiggins Omar Syed MD Jan 05, 2020 10:57
[2020-01-05 12:00] VITALS: BP 123/66
[2020-01-05 16:00] VITALS: BP 128/88
--- NOTE | 2020-01-05 17:02 | Diagnostic Imaging Report ---
EXAM: CT CT Abdomen Pelvis WO Contrast INDICATION: Shortness of breath. Abdominal pain. COMPARISON: None TECHNIQUE: Axial images were obtained through the abdomen pelvis without intravenous contrast. Sagittal and coronal reformats are generated. All CT scans at this facility are performed using dose modulation techniques as appropriate to a performed exam including the following: automated exposure control with adjustment of the mA and/or kV according to patient size. RADIATION DOSE: CTDIvol: 11.4 mGy DLP: 604 mGy-cm Dose information generated by the CT scanner is available in PACS. FINDINGS: There is significant motion and streak artifacts through the lungs. Extensive bilateral alveolar infiltrates demonstrated with air bronchogram. There are also extensive streak and motion artifact through the upper abdomen. There is a nonspecific low-density lesion noted in the posterior lateral aspect of the right lobe of the liver which spleen is grossly homogeneous. Small gallstones noted at the gallbladder neck. The pancreas is unremarkable. Adrenals are normal in morphology. The kidneys are normal in size, shape and axis. There is a G-tube in place. Small bowel loops are nondistended. There is diverticulosis. The appendix is normal. There is no free fluid or free air. No pathologic adenopathy demonstrated. Urinary bladder appears unremarkable. There is midline uterus with apparent calcified fibroid along the right lateral margin. Fixation hardware of the left hip noted. There is severe degenerative changes of the lumbar spine. An IVC filter is in place. There is also a subcutaneous catheter extending vertically through the right chest and coiling in the right abdomen perhaps a REAR ADMIRAL shunt. IMPRESSION: STUDY SEVERELY LIMITED DUE TO MOTION AND STREAK ARTIFACT. EXTENSIVE BILATERAL ALVEOLAR INFILTRATES. NONSPECIFIC LOW-DENSITY LESION RIGHT LOBE OF THE LIVER. GALLSTONES. DIVERTICULOSIS. CALCIFIED UTERINE FIBROID. G-TUBE AND IVC FILTER IN PLACE. ALSO APPARENT REAR ADMIRAL SHUNT.
[2020-01-05 20:00] VITALS: BP 136/79
--- NOTE | 2020-01-05 21:12 | General Progress Note ---
Assessment/Plan Problem List: (1) Respiratory distress ICD Codes: R06.03 - Acute respiratory distress SNOMED: 711773013 (2) Pneumonia due to COVID-19 virus ICD Codes: U07.1 - COVID-19; J12.89 - Other viral pneumonia SNOMED: 105694238, 036066936 Status: progressing Assessment/Plan: resp insuff covid positive pna prn oxygen s/p svt dc once cleared by dr reina banegas positive entercoccous sepsis without source/etiology Subjective ROS Limited/Unobtainable: Yes Allergies: Coded Allergies: IODINE (Verified Allergy, Unknown, 12/30/19) MORPHINE (Verified Allergy, Unknown, 12/30/19) PENICILLINS (Verified Allergy, Unknown, 12/30/19) SHELLFISH DERIVED (Verified Allergy, Unknown, 12/30/19) Objective Last 24 Hour Vital Signs Date Time Temp Pulse Resp B/P (MAP) Pulse Ox O2 Delivery O2 Flow Rate FiO2 01/05/20 16:00 121 01/05/20 16:00 98.7 122 20 128/88 (101) 97 01/05/20 12:00 98.4 113 22 123/66 (85) 97 01/05/20 12:00 113 01/05/20 09:00 Nasal Cannula 2.0 01/05/20 08:00 104 01/05/20 08:00 97.9 104 20 132/84 (100) 96 01/05/20 04:00 97.5 94 20 159/86 (110) 100 01/05/20 04:00 101 01/05/20 00:00 87 01/05/20 00:00 97.5 97 19 148/74 (98) 92 Intake and Output 01/04/20 01/05/20 19:00 07:00 Intake Total 160 ml Output Total 700 ml 1525 ml Balance -700 ml -1365 ml Free Water 100 ml Tube Feeding 60 ml Output Urine Total 700 ml 1525 ml # Bowel Movements 1 1 Laboratory Tests 01/05/20 06:01: White Blood Count 9.7, Red Blood Count 4.80, Hemoglobin 12.4, Hematocrit 40.9, Mean Corpuscular Volume 85, Mean Corpuscular Hemoglobin 25.9L, Mean Corpuscular Hemoglobin Concent 30.4L, Red Cell Distribution Width 14.4, Platelet Count 344, Mean Platelet Volume 8.2, Neutrophils (%) (Auto) 69.1, Lymphocytes (%) (Auto) 20.4, Monocytes (%) (Auto) 8.8, Eosinophils (%) (Auto) 0.6, Basophils (%) (Auto ) 1.2, Sodium Level 139, Potassium Level 4.1, Chloride Level 104, Carbon Dioxide Level 30, Anion Gap 5, Blood Urea Nitrogen 10, Creatinine 0.5L, Estimat Glomerular Filtration Rate > 60, Glucose Level 161H, Calcium Level 9.2 Height (Feet): 5 Height (Inches): 7.00 Weight (Pounds): 200 Dinah Whitney MD Jan 05, 2020 21:12
[2020-01-06] VITALS: BP 127/74
[2020-01-06] MEDS: NovoLOG Insulin Flexpen SUBQ SCH ×3 (00:21→12:00)
[2020-01-06 04:00] VITALS: BP 123/74
[2020-01-06] MEDS: Heparin 5000 units/ml inj SUBQ SCH ×2 (05:21→14:08)
[2020-01-06] MEDS: Vancomycin 1 GM in NS 275 ML IVPB SCH (05:21)
[2020-01-06 06:31] LABS: BASOPHILS % (AUTO) 1.1 % (0.0-2.0); EOSINOPHILS % (AUTO) 0.3 % (0.0-3.0); HEMATOCRIT 37.3 % (37.0-47.0); HEMOGLOBIN 11.6 G/DL (12.0-16.0); LYMPHOCYTES % (AUTO) 22.2 % (20.0-45.0); MEAN CORPUSCULAR VOLUME 84 FL (80-99); MONOCYTES % (AUTO) 11.6 % (1.0-10.0); NEUTROPHILS % (AUTO) 64.8 % (45.0-75.0); PLATELET COUNT 365 K/UL (150-450); RED BLOOD COUNT 4.42 M/UL (4.20-5.40); RED CELL DISTRIBUTION WIDTH 14.2 % (11.6-14.8); WHITE BLOOD COUNT 8.6 K/UL (4.8-10.8)
[2020-01-06 07:07] LABS: ANION GAP 8 mmol/L (5-15); BLOOD UREA NITROGEN 8 mg/dL (7-18); CALCIUM 8.9 MG/DL (8.5-10.1); CARBON DIOXIDE 29 MMOL/L (21-32); CHLORIDE 104 MMOL/L (98-107); CREATININE 0.5 MG/DL (0.55-1.30); POTASSIUM 4.1 MMOL/L (3.5-5.1); SODIUM 140 MMOL/L (136-145)
[2020-01-06 08:00] VITALS: BP 148/75
[2020-01-06] MEDS: Memantine 10mg tab GT SCH (08:49)
[2020-01-06] MEDS: Ascorbic Acid 500mg tab GT SCH (08:50)
[2020-01-06] MEDS: levETIRAcetam 500mg/5ml Liquid GT SCH (08:50)
[2020-01-06] MEDS: Levofloxacin 750mg tab GT SCH (08:50)
[2020-01-06] MEDS: Milk of Magnesia 30ml Ud GT SCH (08:50)
[2020-01-06] MEDS: Zinc Sulfate 220mg GT SCH (09:15)
--- NOTE | 2020-01-06 09:48 | Pulmonology Progress Note ---
Subjective ROS Limited/Unobtainable: Yes Interval Events: None new Constitutional: Denies: fever HEENT: Repors: no symptoms Respiratory: Reports: no symptoms Cardiovascular: Reports: no symptoms Gastrointestinal/Abdominal: Reports: no symptoms Allergies: Coded Allergies: IODINE (Verified Allergy, Unknown, 12/30/19) MORPHINE (Verified Allergy, Unknown, 12/30/19) PENICILLINS (Verified Allergy, Unknown, 12/30/19) SHELLFISH DERIVED (Verified Allergy, Unknown, 12/30/19) Objective Last 24 Hour Vital Signs Date Time Temp Pulse Resp B/P (MAP) Pulse Ox O2 Delivery O2 Flow Rate FiO2 01/06/20 09:00 Nasal Cannula 2.0 01/06/20 08:00 98 01/06/20 08:00 98.8 98 20 148/75 (99) 95 01/06/20 04:00 98.6 105 20 123/74 (90) 95 01/06/20 04:00 97 01/06/20 00:00 103 01/06/20 00:00 98.6 111 20 127/74 (91) 95 01/05/20 21:00 Nasal Cannula 2.0 01/05/20 20:00 98.9 115 20 136/79 (98) 95 01/05/20 20:00 115 01/05/20 16:00 121 01/05/20 16:00 98.7 122 20 128/88 (101) 97 01/05/20 12:00 98.4 113 22 123/66 (85) 97 01/05/20 12:00 113 Intake and Output 01/05/20 01/06/20 19:00 07:00 Intake Total 460 ml Output Total 710 ml 350 ml Balance -250 ml -350 ml Free Water 100 ml Tube Feeding 360 ml Output Urine Total 710 ml 350 ml # Voids 1 # Bowel Movements 3 1 General Appearance: no acute distress HEENT: normocephalic Respiratory: chest wall non-tender, decreased breath sounds Cardiovascular: normal peripheral pulses, normal rate Abdomen: normal bowel sounds Microbiology Date/Time Source Procedure Growth Status 01/03/20 20:15 Blood Blood Culture - Preliminary NO GROWTH AFTER 48 HOURS Resulted 01/03/20 20:00 Blood Blood Culture - Preliminary NO GROWTH AFTER 48 HOURS Resulted Laboratory Tests 01/06/20 05:43: White Blood Count 8.6, Red Blood Count 4.42, Hemoglobin 11.6L, Hematocrit 37.3, Mean Corpuscular Volume 84, Mean Corpuscular Hemoglobin 26.3L, Mean Corpuscular Hemoglobin Concent 31.1L, Red Cell Distribution Width 14.2, Platelet Count 365, Mean Platelet Volume 8.2, Neutrophils (%) (Auto) 64.8, Lymphocytes (%) (Auto) 22.2, Monocytes (%) (Auto) 11.6H, Eosinophils (%) (Auto) 0.3, Basophils (%) ( Auto) 1.1, Sodium Level 140, Potassium Level 4.1, Chloride Level 104, Carbon Dioxide Level 29, Anion Gap 8, Blood Urea Nitrogen 8, Creatinine 0.5L, Estimat Glomerular Filtration Rate > 60, Glucose Level 109H, Calcium Level 8.9 Current Medications Medications (Trade) Dose Ordered Sig/Bola Route PRN Reason Start Time Stop Time Status Last Admin Dose Admin Acetaminophen (Tylenol) 650 mg Q4H PRN GT Mild Pain / T>100.4 01/04/20 06:45 02/03/20 06:44 Acetaminophen (Tylenol) 650 mg Q6H PRN RECTAL Mild Pain/fever 01/04/20 06:45 01/29/20 15:29 Ascorbic Acid (Vitamin C) 1,000 mg Q12HR GT 12/30/19 21:00 01/29/20 20:59 01/06/20 08:50 Barium Sulfate (Readi-Cat 2) 450 ml NOW PRN ORAL Radiology Procedure 01/04/20 11:15 01/06/20 11:09 Bisacodyl (Dulcolax) 10 mg DAILYPRN PRN RECTAL CONSTIPATION 12/30/19 17:00 03/29/20 16:44 Clonidine HCl (Catapres Tab) 0.1 mg Q6H PRN GT sbp>160 12/30/19 16:45 03/29/20 16:44 01/02/20 09:57 Clotrimazole (Lotrimin) 1 applic THREE TIMES A DAY TOPIC 12/31/19 10:00 03/30/20 09:59 01/06/20 08:49 Dextrose (Dextrose 50%) 25 ml Q30M PRN IV Hypoglycemia 12/30/19 16:45 03/29/20 16:44 Dextrose (Dextrose 50%) 50 ml Q30M PRN IV Hypoglycemia 12/30/19 16:45 03/29/20 16:44 Docusate Sodium (Colace) 100 mg BIDPRN PRN GT Constipation 12/30/19 17:00 01/29/20 16:44 Famotidine (Pepcid) 20 mg DAILY GT 12/31/19 09:00 03/30/20 08:59 01/06/20 08:50 Guaifenesin/ Dextromethorphan (Robitussin DM Syrup) 5 ml Q4H PRN GT For Cough 12/30/19 16:54 03/29/20 16:53 01/04/20 01:22 Heparin Sodium (Porcine) (Heparin 5000 units/ml) 5,000 units EVERY 8 HOURS SUBQ 12/30/19 22:00 02/13/20 21:59 01/06/20 05:21 Insulin Aspart (NovoLOG) Q6HR SUBQ 12/30/19 18:00 03/29/20 17:59 01/06/20 00:21 Levetiracetam (Keppra) 500 mg Q12HR GT 12/30/19 21:00 02/13/20 20:59 01/06/20 08:50 Levofloxacin (Levaquin) 750 mg DAILY GT 12/30/19 11:15 01/06/20 11:14 01/06/20 08:50 Magnesium Hydroxide (Mom) 30 ml DAILY GT 12/31/19 09:00 01/30/20 08:59 01/06/20 08:50 Memantine (Namenda) 10 mg DAILY GT 12/31/19 09:00 01/30/20 08:59 01/06/20 08:49 Ondansetron HCl (Zofran) 4 mg Q4H PRN GT Nausea & Vomiting 12/30/19 16:45 01/29/20 16:44 Sodium Phosphate (Fleet's Sodium Phosl Enema) 133 ml DAILYPRN PRN RECTAL constipation 12/30/19 16:45 01/29/20 16:44 Vancomycin HCl (Vanco pharmacy to dose) 1 ea DAILY PRN MISC Per rx protocol 12/31/19 12:15 01/30/20 12:14 Vancomycin HCl 1 gm/Sodium Chloride 275 ml @ 183.708 mls/hr Q8H IVPB 01/02/20 13:00 01/07/20 12:59 01/06/20 05:21 Zinc Sulfate (Zinc Sulfate) 220 mg DAILY GT 12/31/19 09:00 03/30/20 08:59 01/06/20 09:15 Assessment/Plan Assessment/Plan IMPRESSION: 1. Hypoxic respiratory failure. Improving; now on 2-4 L/min O2 2. COVID-19 pneumonia. 3. Hyperglycemia. 4. Hypertension. 5. Seizure disorder. 6. Dementia. 7. Fever; resolved DISCUSSION: She has COVID-19 pneumonia. Abx per ID Continue oxygen, pulmonary hygiene, and fluids. OK to dc Ramon Wiggins Omar Syed MD Jan 06, 2020 09:48
--- NOTE | 2020-01-06 10:09 | General Progress Note ---
Assessment/Plan Status: progressing Assessment/Plan: 1. History of dementia. 2. COPD. 3. Dysphagia requiring G-tube. 4. GERD. 5. Recent COVID positive pneumonia. GT has been changed GTF GT care will fu Subjective ROS Limited/Unobtainable: No Allergies: Coded Allergies: IODINE (Verified Allergy, Unknown, 12/30/19) MORPHINE (Verified Allergy, Unknown, 12/30/19) PENICILLINS (Verified Allergy, Unknown, 12/30/19) SHELLFISH DERIVED (Verified Allergy, Unknown, 12/30/19) Objective Last 24 Hour Vital Signs Date Time Temp Pulse Resp B/P (MAP) Pulse Ox O2 Delivery O2 Flow Rate FiO2 01/06/20 09:00 Nasal Cannula 2.0 01/06/20 08:00 98 01/06/20 08:00 98.8 98 20 148/75 (99) 95 01/06/20 04:00 98.6 105 20 123/74 (90) 95 01/06/20 04:00 97 01/06/20 00:00 103 01/06/20 00:00 98.6 111 20 127/74 (91) 95 01/05/20 21:00 Nasal Cannula 2.0 01/05/20 20:00 98.9 115 20 136/79 (98) 95 01/05/20 20:00 115 01/05/20 16:00 121 01/05/20 16:00 98.7 122 20 128/88 (101) 97 01/05/20 12:00 98.4 113 22 123/66 (85) 97 01/05/20 12:00 113 Intake and Output 01/05/20 01/06/20 19:00 07:00 Intake Total 460 ml Output Total 710 ml 350 ml Balance -250 ml -350 ml Free Water 100 ml Tube Feeding 360 ml Output Urine Total 710 ml 350 ml # Voids 1 # Bowel Movements 3 1 Laboratory Tests 01/06/20 05:43: White Blood Count 8.6, Red Blood Count 4.42, Hemoglobin 11.6L, Hematocrit 37.3, Mean Corpuscular Volume 84, Mean Corpuscular Hemoglobin 26.3L, Mean Corpuscular Hemoglobin Concent 31.1L, Red Cell Distribution Width 14.2, Platelet Count 365, Mean Platelet Volume 8.2, Neutrophils (%) (Auto) 64.8, Lymphocytes (%) (Auto) 22.2, Monocytes (%) (Auto) 11.6H, Eosinophils (%) (Auto) 0.3, Basophils (%) ( Auto) 1.1, Sodium Level 140, Potassium Level 4.1, Chloride Level 104, Carbon Dioxide Level 29, Anion Gap 8, Blood Urea Nitrogen 8, Creatinine 0.5L, Estimat Glomerular Filtration Rate > 60, Glucose Level 109H, Calcium Level 8.9 Height (Feet): 5 Height (Inches): 7.00 Weight (Pounds): 205 General Appearance: no apparent distress EENT: normal ENT inspection Neck: supple Cardiovascular: normal rate Respiratory/Chest: decreased breath sounds Abdomen: normal bowel sounds, non tender, soft Extremities: non-tender Dennis Chester MD Jan 06, 2020 10:09
--- NOTE | 2020-01-06 11:59 | Cardiac Electrophysiology PN ---
Assessment/Plan Assessment/Plan 1. Bacteremia. Echocardiogram showed ejection fraction of 55 to 60%. No evidence of vegetation based an echo on 12/30/2019. CT of the abdomen and pelvis noted. Consider NICOLE only if recommended by ID and if it changes the management. 2. COVID positive pneumonia. 3. Dysphagia, status post PEG placement. 4. Diabetes. 5. Seizures. She is on Keppra. EMILY RN and Dr. Ramos Subjective Subjective In SR in covid isolation. On 2 liter NC. HR better Objective Last 24 Hour Vital Signs Date Time Temp Pulse Resp B/P (MAP) Pulse Ox O2 Delivery O2 Flow Rate FiO2 01/06/20 09:00 Nasal Cannula 2.0 01/06/20 08:00 98 01/06/20 08:00 98.8 98 20 148/75 (99) 95 01/06/20 04:00 98.6 105 20 123/74 (90) 95 01/06/20 04:00 97 01/06/20 00:00 103 01/06/20 00:00 98.6 111 20 127/74 (91) 95 01/05/20 21:00 Nasal Cannula 2.0 01/05/20 20:00 98.9 115 20 136/79 (98) 95 01/05/20 20:00 115 01/05/20 16:00 121 01/05/20 16:00 98.7 122 20 128/88 (101) 97 01/05/20 12:00 98.4 113 22 123/66 (85) 97 01/05/20 12:00 113 Intake and Output 01/05/20 01/06/20 19:00 07:00 Intake Total 460 ml Output Total 710 ml 350 ml Balance -250 ml -350 ml Free Water 100 ml Tube Feeding 360 ml Output Urine Total 710 ml 350 ml # Voids 1 # Bowel Movements 3 1 Laboratory Tests Test 01/06/20 05:43 White Blood Count 8.6 K/UL (4.8-10.8) Red Blood Count 4.42 M/UL (4.20-5.40) Hemoglobin 11.6 G/DL (12.0-16.0) L Hematocrit 37.3 % (37.0-47.0) Mean Corpuscular Volume 84 FL (80-99) Mean Corpuscular Hemoglobin 26.3 PG (27.0-31.0) L Mean Corpuscular Hemoglobin Concent 31.1 G/DL (32.0-36.0) L Red Cell Distribution Width 14.2 % (11.6-14.8) Platelet Count 365 K/UL (150-450) Mean Platelet Volume 8.2 FL (6.5-10.1) Neutrophils (%) (Auto) 64.8 % (45.0-75.0) Lymphocytes (%) (Auto) 22.2 % (20.0-45.0) Monocytes (%) (Auto) 11.6 % (1.0-10.0) H Eosinophils (%) (Auto) 0.3 % (0.0-3.0) Basophils (%) (Auto) 1.1 % (0.0-2.0) Sodium Level 140 MMOL/L (136-145) Potassium Level 4.1 MMOL/L (3.5-5.1) Chloride Level 104 MMOL/L (98-107) Carbon Dioxide Level 29 MMOL/L (21-32) Anion Gap 8 mmol/L (5-15) Blood Urea Nitrogen 8 mg/dL (7-18) Creatinine 0.5 MG/DL (0.55-1.30) L Estimat Glomerular Filtration Rate > 60 mL/min (>60) Glucose Level 109 MG/DL (74-106) H Calcium Level 8.9 MG/DL (8.5-10.1) Microbiology Date/Time Source Procedure Growth Status 01/03/20 20:15 Blood Blood Culture - Preliminary NO GROWTH AFTER 48 HOURS Resulted 01/03/20 20:00 Blood Blood Culture - Preliminary NO GROWTH AFTER 48 HOURS Resulted Objective HEAD AND NECK: No JVD. LUNGS: Clear. CARDIOVASCULAR: Regular S1 and S2 with no gallop. ABDOMEN: Status post G-tube. EXTREMITIES: 1+ pitting edema. Carl Cornejo MD Jan 06, 2020 11:59
[2020-01-06 12:00] VITALS: BP 131/82
--- NOTE | 2020-01-06 13:07 | Infectious Diseases Prog Note ---
Assessment/Plan Assessment/Plan IMPRESSION: Enterococcus sepsis Pneumonia, positive COVID19 COPD, Dementia, Diabetes mellitus, G-tube placement status Seizure disorder, Hypoxemia, Lactic acidosis. Penicillin allergy Gallstone Diverticulosis RECOMMENDATION: Can be discharged with PO Levaquin X 2 weeks Case was D/W case specialist Subjective ROS Limited/Unobtainable: Yes Constitutional: Denies: fever Allergies: Coded Allergies: IODINE (Verified Allergy, Unknown, 12/30/19) MORPHINE (Verified Allergy, Unknown, 12/30/19) PENICILLINS (Verified Allergy, Unknown, 12/30/19) SHELLFISH DERIVED (Verified Allergy, Unknown, 12/30/19) Objective Vital Signs Last 24 Hour Vital Signs Date Time Temp Pulse Resp B/P (MAP) Pulse Ox O2 Delivery O2 Flow Rate FiO2 01/06/20 12:00 93 01/06/20 12:00 98.5 93 20 131/82 (98) 95 01/06/20 09:00 Nasal Cannula 2.0 01/06/20 08:00 98 01/06/20 08:00 98.8 98 20 148/75 (99) 95 01/06/20 04:00 98.6 105 20 123/74 (90) 95 01/06/20 04:00 97 01/06/20 00:00 103 01/06/20 00:00 98.6 111 20 127/74 (91) 95 01/05/20 21:00 Nasal Cannula 2.0 01/05/20 20:00 98.9 115 20 136/79 (98) 95 01/05/20 20:00 115 01/05/20 16:00 121 01/05/20 16:00 98.7 122 20 128/88 (101) 97 Height (Feet): 5 Height (Inches): 7.00 Weight (Pounds): 205 General Appearance: no acute distress HEENT: mucous membranes moist Respiratory/Chest: other - oxygen by nasal cannula Cardiovascular: normal rate Abdomen: soft, non tender, other - GT feeding Neurologic/Psychiatric: aphasia Microbiology Date/Time Source Procedure Growth Status 01/03/20 20:15 Blood Blood Culture - Preliminary NO GROWTH AFTER 48 HOURS Resulted 01/03/20 20:00 Blood Blood Culture - Preliminary NO GROWTH AFTER 48 HOURS Resulted Laboratory Tests Test 01/06/20 05:43 White Blood Count 8.6 K/UL (4.8-10.8) Red Blood Count 4.42 M/UL (4.20-5.40) Hemoglobin 11.6 G/DL (12.0-16.0) L Hematocrit 37.3 % (37.0-47.0) Mean Corpuscular Volume 84 FL (80-99) Mean Corpuscular Hemoglobin 26.3 PG (27.0-31.0) L Mean Corpuscular Hemoglobin Concent 31.1 G/DL (32.0-36.0) L Red Cell Distribution Width 14.2 % (11.6-14.8) Platelet Count 365 K/UL (150-450) Mean Platelet Volume 8.2 FL (6.5-10.1) Neutrophils (%) (Auto) 64.8 % (45.0-75.0) Lymphocytes (%) (Auto) 22.2 % (20.0-45.0) Monocytes (%) (Auto) 11.6 % (1.0-10.0) H Eosinophils (%) (Auto) 0.3 % (0.0-3.0) Basophils (%) (Auto) 1.1 % (0.0-2.0) Sodium Level 140 MMOL/L (136-145) Potassium Level 4.1 MMOL/L (3.5-5.1) Chloride Level 104 MMOL/L (98-107) Carbon Dioxide Level 29 MMOL/L (21-32) Anion Gap 8 mmol/L (5-15) Blood Urea Nitrogen 8 mg/dL (7-18) Creatinine 0.5 MG/DL (0.55-1.30) L Estimat Glomerular Filtration Rate > 60 mL/min (>60) Glucose Level 109 MG/DL (74-106) H Calcium Level 8.9 MG/DL (8.5-10.1) Current Medications Medications (Trade) Dose Ordered Sig/Bola Route PRN Reason Start Time Stop Time Status Last Admin Dose Admin Acetaminophen (Tylenol) 650 mg Q4H PRN GT Mild Pain / T>100.4 01/04/20 06:45 02/03/20 06:44 Acetaminophen (Tylenol) 650 mg Q6H PRN RECTAL Mild Pain/fever 01/04/20 06:45 01/29/20 15:29 Ascorbic Acid (Vitamin C) 1,000 mg Q12HR GT 12/30/19 21:00 01/29/20 20:59 01/06/20 08:50 Bisacodyl (Dulcolax) 10 mg DAILYPRN PRN RECTAL CONSTIPATION 12/30/19 17:00 03/29/20 16:44 Clonidine HCl (Catapres Tab) 0.1 mg Q6H PRN GT sbp>160 12/30/19 16:45 03/29/20 16:44 01/02/20 09:57 Clotrimazole (Lotrimin) 1 applic THREE TIMES A DAY TOPIC 12/31/19 10:00 03/30/20 09:59 01/06/20 08:49 Dextrose (Dextrose 50%) 25 ml Q30M PRN IV Hypoglycemia 12/30/19 16:45 03/29/20 16:44 Dextrose (Dextrose 50%) 50 ml Q30M PRN IV Hypoglycemia 12/30/19 16:45 03/29/20 16:44 Docusate Sodium (Colace) 100 mg BIDPRN PRN GT Constipation 12/30/19 17:00 01/29/20 16:44 Famotidine (Pepcid) 20 mg DAILY GT 12/31/19 09:00 03/30/20 08:59 01/06/20 08:50 Guaifenesin/ Dextromethorphan (Robitussin DM Syrup) 5 ml Q4H PRN GT For Cough 12/30/19 16:54 03/29/20 16:53 01/04/20 01:22 Heparin Sodium (Porcine) (Heparin 5000 units/ml) 5,000 units EVERY 8 HOURS SUBQ 12/30/19 22:00 02/13/20 21:59 01/06/20 05:21 Insulin Aspart (NovoLOG) Q6HR SUBQ 12/30/19 18:00 03/29/20 17:59 01/06/20 00:21 Levetiracetam (Keppra) 500 mg Q12HR GT 12/30/19 21:00 02/13/20 20:59 01/06/20 08:50 Magnesium Hydroxide (Mom) 30 ml DAILY GT 12/31/19 09:00 01/30/20 08:59 01/06/20 08:50 Memantine (Namenda) 10 mg DAILY GT 12/31/19 09:00 01/30/20 08:59 01/06/20 08:49 Ondansetron HCl (Zofran) 4 mg Q4H PRN GT Nausea & Vomiting 12/30/19 16:45 01/29/20 16:44 Sodium Phosphate (Fleet's Sodium Phosl Enema) 133 ml DAILYPRN PRN RECTAL constipation 12/30/19 16:45 01/29/20 16:44 Vancomycin HCl (Vanco pharmacy to dose) 1 ea DAILY PRN MISC Per rx protocol 12/31/19 12:15 01/30/20 12:14 Vancomycin HCl 1 gm/Sodium Chloride 275 ml @ 183.708 mls/hr Q8H IVPB 01/02/20 13:00 01/07/20 12:59 01/06/20 05:21 Zinc Sulfate (Zinc Sulfate) 220 mg DAILY GT 12/31/19 09:00 03/30/20 08:59 01/06/20 09:15 Mamadou Ramos MD Jan 06, 2020 13:07
[2020-01-06] MEDS ORDERED: Levofloxacin 750mg tab GT SCH (13:10)
[2020-01-06] MEDS ORDERED: LEVAQUIN750 MG GT (13:48)
[2020-01-06] MEDS ORDERED: Tubing IV Secondary IV ONE (15:39)
[2020-01-06] MEDS ORDERED: NS 275ml ONE (15:39)
[2020-01-06 16:00] VITALS: BP 142/83
--- NOTE | 2020-01-07 13:33 | Discharge Summary ---
Discharge Summary Discharge Summary _ DATE OF ADMISSION: 12/30/2019 DATE OF DISCHARGE: 01/06/2020 DISCHARGED BY: Dr. Whitney REASON FOR ADMISSION: 69 years old female with past medical history of COPD, seizure disorder, dementia, dysphagia, feeding by G-tube, was sent from the custodial facility due to hypoxia. Patient also had fever. Patient apparently was tested positive for COVID-19. Pulse oximetry was 80% on 2 L of oxygen via nasal cannula. Upon evaluation patient had fever was febrile and was hypoxic. Laboratory work-up revealed no leukocytosis, stable hemoglobin, hematocrit and platelet count. Lymphopenia noted. ABG revealed significant hypoxia. Stable electrolytes and renal parameters. Lactic acid 2.6. Glucose 173. Troponin negative. Pro BNP 529. EKG revealed sinus tachycardia , no acute ischemic changes. AST 41 , ALT 65 Urinalysis revealed +3 protein , no evidence of urinary tract infection. Chest x-ray demonstrated bilateral infiltrates. Patient was swabbed for COVID-19 , pancultured , started on empiric antibiotics , IV fluids and admitted for further management. CONSULTANTS: events manager Dr. Gavin pulmonary Dr. Diaz ID specialist Dr. Mamadou Ramos GI specialist Dr. Chester [facility] COURSE: Patient admitted to telemetry floor. Supplemental oxygen provided and titrated to keep pulse oximetry above 90%. Pulmonary toilet provided. Patient started on empiric antibiotic as per ID specialist recommendation.. Initial blood culture revealed Enterococci avium. Repeated blood cultures 01/02 were negative. SARS COV2 by PCR came back detected. Isolation continued. Echocardiogram revealed ejection fraction of 55 to 60%. No evidence of vegetation based on echo from 12/29. Mushroom Sorter Grader recommended to consider NICOLE only if it is recommended by ID and if it change the management. Seizure precaution maintained. No evidence of seizure activity while in the hospital. eppra continued. CT scan of the abdomen and pelvis revealed extensive bilateral alveolar infiltrates. Nonspecific low-density lesion right lobe of the liver. Gallstones. Diverticulosis. Calcified uterine fibroids. G-tube and IVC filter in place , also apparent [employer] shunt. G-tube was changed due to malfunctioning. Tube feeding continued , strict aspiration precautions maintained. Hemoglobin and hematocrit remained stable. GI prophylaxis provided. Bowel regimen instituted. Blood sugar was managed with sliding scale of insulin. Patient clinically stabilized and was ready for transfer back to custodial facility for continuation of care . patient will need to continue antibiotic at the facility to complete the course as recommended by ID specialist. FINAL DIAGNOSES: Sepsis with Enterococci bacteremia Confirmed COVID-19 infection Hypoxic respiratory failure due to COVID-19 infection COVID-19 pneumonia Diabetes mellitus Dysphagia, feeding by G-tube Seizure disorder Lactic acidosis Gallstones Diverticulosis Hypertension Dementia Penicillin allergy DISCHARGE MEDICATIONS: See Medication Reconciliation list. DISCHARGE INSTRUCTIONS: Patient was discharged to the custodial facility. Follow up with medical doctor at the facility. I have been assigned to dictate discharge summary for this account. I was not involved in the patient's management. Madelin Wise NP Jan 07, 2020 13:33
== END 2020-01-06 15:40 | DRG 871 ==
LOC: EDBD 05:00 → EMR 05:40 → EDBEDREQ 08:05 → 2E 08:15
DX: A41.81 Sepsis due to Enterococcus (principal); U07.1 COVID-19; J12.89 Other viral pneumonia; J96.91 Respiratory failure, unspecified with hypoxia; Z43.1 Encounter for attention to gastrostomy; R13.10 Dysphagia, unspecified; K80.80 Other cholelithiasis without obstruction; K57.90 Diverticulosis of intestine, part unspecified, without perforation or abscess without bleeding; Z88.0 Allergy status to penicillin; G40.909 Epilepsy, unspecified, not intractable, without status epilepticus; F03.90 Unspecified dementia, unspecified severity, without behavioral disturbance, psychotic disturbance, mood disturbance, and anxiety; E11.65 Type 2 diabetes mellitus with hyperglycemia; K21.9 Gastro-esophageal reflux disease without esophagitis; J44.9 Chronic obstructive pulmonary disease, unspecified; Z88.6 Allergy status to analgesic agent
CPT/HCPCS: 36415; 36600; 71045; 74176; 80048; 80053; 80202; 81003; 82803; 82962; 83605; 83880; 84484; 85025; 87040; 87081; 87181; 93005; 93306; 96360; 99285; J1815; J7030; J8499